=== PATIENT | male | born 1930 | race Caucasian/White ===

== ENCOUNTER → 2016-08-12 | Outpatient (CLI) | payer OTHER ==
[~2016-08-12] MED LIST: AMLO-114 PO; ASPI325T39 PO; ATOR10TA82 PO; B-COCAP2 PO; CHOL100010 PO; GABA1CAP5 PO; LISI-725 PO; MULT-190 PO; NITR-5 PO; OXYC-57 PO; VITATAB19 PO
--- NOTE | 2016-08-12 12:18 | DIAGNOSTIC IMAGING REPORT ---
ULTRASOUND ART DOP LOWER EXT BILAT CLINICAL HISTORY: RIGHT FOOT pain COMPARISON STUDY: 05/11/2012 FINDINGS: Real-time as well as Doppler evaluation of the arterial structures of the lower legs was performed. Waveforms are triphasic throughout. Velocity characteristics are unremarkable. Similar study is compared to the prior study. Biphasic phasic waveforms are noted throughout both legs primarily. Velocity characteristics are considered unremarkable. There continues be a suggestion of some dampening of the waveforms of the 3 runoff vessels of the lower leg. Calcified plaque formation is noted bilaterally limiting evaluation in part. Monophasic waveforms are noted involving the runoff vessels of the left lower leg with dampened waveforms again noted. The following blood pressure indices were obtained. On the right, posterior tibial is 0.97 and dorsalis pedis is 0.96. On the left, posterior tibial is 0.67 and dorsalis pedis is 0.88. IMPRESSION: Somewhat limited study due to presence of calcified plaque. 2. Diminished and are dampened 3 vessel runoff vascular flow to the lower legs bilaterally. 3. 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 4. No major change compared to the prior study. Electronically signed by: Michele Jeffries M.D. 08/12/2016 12:17 PM Dictated Date/Time: 08/12/2016 12:14 PM
== END | disposition home or self-care (01) ==
LOC: C.ULTR 10:28
PROVIDERS: ATTEND Podiatrist
DX: M79.671 Pain in right foot (principal); L89.891 Pressure ulcer of other site, stage 1; G60.8 Other hereditary and idiopathic neuropathies

== ENCOUNTER 2020-07-28 10:01 | Inpatient (IN) ==
--- NOTE | 2020-07-28 10:07 | Emergency Department Note ---
Impression & Plan Acute hypoxemic respiratory failure, Pneumonia, SHARRI (acute kidney injury), Dehydration, COVID-19 ED Provider Note NAME: SARAY FOWLER AGE: 89 SEX: M : 1930 ARRIVES VIA: Ambulance INFORMANT: Patient, ED PROVIDER(S): Sheng Hernandez MD Chief Complaint: Shortness of breath HPI: Patient does present with concern for shortness of breath patient is unsure as to how long he has had the symptoms but has had a dry nonproductive cough. The patient is vaccinated for Covid. Patient denies any recent travel or sick contacts. The patient does live with his sister. Patient states that he has had worsening shortness of breath with activity. Unsure as to whether not he has had worsening lower extremity swelling. EMS reported the patient was satting in the high 70s was given a breathing treatment. The patient does not wear at home oxygen. The patient does have a remote history of smoking several times but no chronic smoking use and none recent. Patient denies any fevers or chills chest pains or nausea or vomiting. Patient states he is compliant with his medications and did take his morning meds. ROS: See HPI for pertinent positives and negatives. A total of 10 systems were reviewed and otherwise negative. Past medical history: See below Surgical history: See below Social history: See below Physical Exam: GENERAL: Mildly ill in appearance, nasal cannula in place, wearing a mask EYE EXAM: Normal conjunctiva. PERRL, no anisocoria and EOM's grossly intact w/o pain. NECK: Supple, no nuchal rigidity, no adenopathy, non-tender. No signs of meningismus. LUNGS: Crackles throughout. HEART: NSR, no MRG. ABDOMEN: Abdomen soft, non-tender, normo-active bowel sounds, no masses, no rebound or guarding. BACK: No CVA TTP. SKIN: No rashes and no bruising. UPPER EXTREMITIES: Upper extremities are grossly normal. LOWER EXTREMITIES: Grossly normal, no edema. Missing left first toe. Well-h ealed. NEURO EXAM: A&O x3, cranial nerves II-XII grossly intact, normal speech, moves all 4 extremities on command w/o issue. Differential diagnoses: Reactive airway disease, pneumonia, pneumothorax, COPD, CHF, infections, cardiac ischemia, pulmonary embolism, musculoskeletal, gastrointestinal, as well as other pathologies. Course: Patient was seen and evaluated the bedside. Full history physical exam was performed. EKG: Indication: Shortness of breath Sinus with PVCs, rate of 81, wide QRS, right bundle branch block pattern. The patient's right bundle is new from comparison EKG completed February 06, 2018. Imaging Studies: See below Cardiac monitoring: An order was placed for continuous cardiac monitoring. The monitor shows a rate of 81 with sinus rhythm. MDM: Patient was seen due to concern for shortness of breath. Blood work was obtained along with an EKG troponin chest x-ray BNP VBG and lactate. Covid also obtained. Patient does not appear to be volume overloaded but does have crackles throughout. VBG unremarkable with white count of 12 H&H is unremarkable. The patient did have a lactate of 3.8 and had endorsed some diarrheal type symptoms the patient was ordered IV fluids especially light of the patient's elevated BUN to creatinine ratio and a change of his creatinine from 1.3-1.9. Covid and flu still pending. Chest x-ray with viral type pneumonia. I did speak with alcohol hospitalist Halle Mann PA-C and the patient was admitted to Dr. Church. I also discussed that the patient does have a new right bundle branch block from several years ago but the patient is not tachypneic nor tachycardic. Patient does not take anything for rate control and I believe an infectious process to be unlikely. No obvious lower extremity swelling. Antibiotics/dexamethasone deferred until Covid results obtained. Covid positive. Dexamethasone ordered. Critical Care: I have personally spent 57 minutes of critical care time in direct management of this patient. This includes bedside care, interpretation of diagnostic studies, and testing, discussion with consultants, patient, and family members, and other require inpatient management activities. This 57 minutes is in excess of all separately billable procedures. Past Med/Surg History Medical History (Updated 07/28/20 @ 13:14 by Sheng Hernandez MD) Heart disease HTN (hypertension) Kidney disease Peripheral neuropathy PVD (peripheral vascular disease) Surgical History Hx of transurethral resection of prostate Family History Other Heart disease Social History Smoking Status: Never smoker Second Hand Exposure: No; Hx Alcohol Use: No Hx Substance Use: No Preferred Language: Indonesian Communication Ability: Effective Visual Impairment: No Limitations Digital Computer Systems Analyst Required: No Beliefs That Will Affect Care: None Current Living Situation: Family Current Living Situation Comment: lives with sister Feels Safe at Home: Yes Assistive Devices: Special Shoe Allergies Allergies Allergy/AdvReac Type Severity Reaction Status Date / Time pollen extracts Allergy Intermediate "HAYFEVER" Verified 07/28/20 10:53 No Known Drug Allergies Allergy Unknown NKDA Verified 07/28/20 10:53 Home Meds Home Medications Medication Instructions Recorded Confirmed amlodipine 10 mg PO QAM 02/06/18 07/28/20 aspirin 325 mg PO QAM 02/06/18 07/28/20 atorvastatin 10 mg PO QDL 02/06/18 07/28/20 cholecalciferol (vitamin D3) 1,000 unit PO QAM 02/06/18 07/28/20 [Vitamin D3] lisinopril 15 mg PO QAM 02/06/18 07/28/20 vitamin B complex 1 tab PO QDL 02/06/18 07/28/20 finasteride 5 mg PO QAM 07/28/20 07/28/20 vit C,N-Qr-mnqwc-lutein-zeaxan 1 tab PO BID 07/28/20 07/28/20 [PreserVision AREDS-2] Previous Rx's Medication Instructions Recorded clopidogrel 75 mg PO QAM #30 tab 02/12/18 Results & Data (ED) Vital Signs Vital Signs - 24 hr 07/28/20 10:13 07/28/20 10:15 07/28/20 10:31 Temperature 37 C Temperature Source Oral Pulse Rate 83 86 Pulse Rate from SpO2 Sensor 67 Pulse Rhythm Regular Pulse Strength Normal Respiratory Rate 22 23 Respiratory Effort / Characteristics Short of Breath Respiratory Pattern Regular Blood Pressure 160/66 H 130/57 L Blood Pressure Mean 97 81 Pulse Oximetry 88 L 92 94 Oxygen Delivery Method Room Air Nasal Cannula Nasal Cannula Nasal Cannula Oxygen Flow Rate 4 4 4 Sepsis Recent Fever Within 48 Hours No Sepsis New/Unexplained Change in Mental Status No Sepsis Action Taken by Nursing No Action Required Oxygen Flow Rate - Titration 4 Pulse Oximetry Post Tiitration 98 07/28/20 11:00 07/28/20 11:15 07/28/20 11:30 Temperature Temperature Source Pulse Rate 76 78 Pulse Rate from SpO2 Sensor 70 63 Pulse Rhythm Pulse Strength Respiratory Rate 22 24 Respiratory Effort / Characteristics Non-Labored Spontaneous Non-Labored Spontaneous Respiratory Pattern Blood Pressure 142/59 H Blood Pressure Mean 86 Pulse Oximetry 94 95 Oxygen Delivery Method Nasal Cannula Nasal Cannula Nasal Cannula Oxygen Flow Rate 4 4 4 Sepsis Recent Fever Within 48 Hours Sepsis New/Unexplained Change in Mental Status Sepsis Action Taken by Nursing Oxygen Flow Rate - Titration Pulse Oximetry Post Tiitration 07/28/20 12:00 07/28/20 12:01 07/28/20 12:30 Temperature Temperature Source Pulse Rate 77 74 Pulse Rate from SpO2 Sensor 70 71 Pulse Rhythm Pulse Strength Respiratory Rate 25 H 21 Respiratory Effort / Characteristics Non-Labored Spontaneous Respiratory Pattern Blood Pressure 122/51 L 133/67 Blood Pressure Mean 74 89 Pulse Oximetry 93 94 Oxygen Delivery Method Nasal Cannula Nasal Cannula Nasal Cannula Oxygen Flow Rate 4 4 4 Sepsis Recent Fever Within 48 Hours Sepsis New/Unexplained Change in Mental Status Sepsis Action Taken by Nursing Oxygen Flow Rate - Titration Pulse Oximetry Post Tiitration Home Medications Current Medication List: was personally reviewed by me Laboratory Data Attestation: I reviewed the patient's lab results. Result diagrams: 07/28/20 10:15 07/28/20 10:15 Lab Results 07/28/20 07/28/20 07/28/20 Range/Units 10:15 10:15 10:15 WBC 12.10 H (4.8-10.8) K/uL RBC 4.93 (4.7-6.1) M/uL Hgb 15.3 (14.0-18.0) g/dL Hct 42.1 (42-52) % MCV 85.4 (80-100) fL MCH 31.0 (25-34) pg MCHC 36.3 H (32-36) g/dL RDW Std Deviation 40.3 (36.4-46.3) fL RDW Coeff of Khang 12.8 (11.5-14.5) % Plt Count 115 L (130-400) K/uL MPV 12.6 H (7.4-10.4) fL Immature Gran % (Auto) 0.2 % Neut % (Auto) 81.9 % Lymph % (Auto) 10.7 % [place] % (Auto) 6.4 % Eos % (Auto) 0.7 % Baso % (Auto) 0.1 % Neut # (Auto) 9.92 H (1.4-6.5) K/uL Lymph # (Auto) 1.29 (1.2-3.4) K/uL [place] # (Auto) 0.78 H (0.11-0.59) K/uL Eos # (Auto) 0.08 (0-0.5) K/uL Baso # (Auto) 0.01 (0-0.2) K/uL Immature Gran # (Auto) 0.02 (0.00-0.02) K/uL Platelet Estimate Decreased L (Normal) PT 10.1 (9.0-12.0) Seconds INR 1.0 (0.9-1.1) APTT 27.6 (21.0-31.0) Seconds PTT Ratio 1.0 VBG pH (7.36-7.41) VBG pCO2 (38-50) mmHg VBG pO2 mmHg VBG HCO3 mmol/L VBG O2 Saturation % VBG Base Excess mEq/L Barometric Pressure mm/Hg Sodium 142 (136-145) mmol/L Potassium 3.6 (3.5-5.1) mmol/L Chloride 109 H (98-107) mmol/L Carbon Dioxide 22 (21-32) mmol/L Anion Gap 11.0 (3-11) BUN 46 H (7-18) mg/dl Creatinine 1.98 H (0.6-1.4) mg/dl Est Cr Clr Drug Dosing 25.5 ml/min Est GFR ( Amer) 34.0 Est GFR (Non-Af Amer) 29.3 BUN/Creatinine Ratio 23.3 H (10-20) Glucose 122 H (70-99) mg/dl Lactate (0.4-2.0) mmol/L Calcium 9.0 (8.5-10.1) mg/dl Magnesium 2.8 H (1.8-2.4) mg/dl Total Bilirubin 1.0 (0.2-1) mg/dl AST 39 H (15-37) U/L ALT 31 (12-78) U/L Alkaline Phosphatase 73 (45-117) U/L Troponin I 0.024 (0-0.045) ng/ml NT-Pro-B Natriuret Pep 379 (0-1800) pg/ml Total Protein 8.5 H (6.4-8.2) gm/dl Albumin 3.3 L (3.4-5.0) gm/dl Globulin 5.2 H (2.5-4.0) gm/dl Albumin/Globulin Ratio 0.6 L (0.9-2) Procalcitonin (0-0.5) ng/ml COVID-19 Eval Order SARS-CoV-2 (PCR) (Negative) Influenza Type A (PCR) (Neg) Influenza Type B (PCR) (Neg) RSV (RT-PCR) (Neg) 07/28/20 07/28/20 07/28/20 Range/Units 10:15 10:15 10:24 WBC (4.8-10.8) K/uL RBC (4.7-6.1) M/uL Hgb (14.0-18.0) g/dL Hct (42-52) % MCV (80-100) fL MCH (25-34) pg MCHC (32-36) g/dL RDW Std Deviation (36.4-46.3) fL RDW Coeff of Khang (11.5-14.5) % Plt Count (130-400) K/uL MPV (7.4-10.4) fL Immature Gran % (Auto) % Neut % (Auto) % Lymph % (Auto) % [place] % (Auto) % Eos % (Auto) % Baso % (Auto) % Neut # (Auto) (1.4-6.5) K/uL Lymph # (Auto) (1.2-3.4) K/uL [place] # (Auto) (0.11-0.59) K/uL Eos # (Auto) (0-0.5) K/uL Baso # (Auto) (0-0.2) K/uL Immature Gran # (Auto) (0.00-0.02) K/uL Platelet Estimate (Normal) PT (9.0-12.0) Seconds INR (0.9-1.1) APTT (21.0-31.0) Seconds PTT Ratio VBG pH (7.36-7.41) VBG pCO2 (38-50) mmHg VBG pO2 mmHg VBG HCO3 mmol/L VBG O2 Saturation % VBG Base Excess mEq/L Barometric Pressure mm/Hg Sodium (136-145) mmol/L Potassium (3.5-5.1) mmol/L Chloride (98-107) mmol/L Carbon Dioxide (21-32) mmol/L Anion Gap (3-11) BUN (7-18) mg/dl Creatinine (0.6-1.4) mg/dl Est Cr Clr Drug Dosing ml/min Est GFR ( Amer) Est GFR (Non-Af Amer) BUN/Creatinine Ratio (10-20) Glucose (70-99) mg/dl Lactate 3.8 H* (0.4-2.0) mmol/L Calcium (8.5-10.1) mg/dl Magnesium (1.8-2.4) mg/dl Total Bilirubin (0.2-1) mg/dl AST (15-37) U/L ALT (12-78) U/L Alkaline Phosphatase (45-117) U/L Troponin I (0-0.045) ng/ml NT-Pro-B Natriuret Pep (0-1800) pg/ml Total Protein (6.4-8.2) gm/dl Albumin (3.4-5.0) gm/dl Globulin (2.5-4.0) gm/dl Albumin/Globulin Ratio (0.9-2) Procalcitonin 0.28 (0-0.5) ng/ml COVID-19 Eval Order CovFluRsv at [facility] SARS-CoV-2 (PCR) (Negative) Influenza Type A (PCR) (Neg) Influenza Type B (PCR) (Neg) RSV (RT-PCR) (Neg) 07/28/20 07/28/20 Range/Units 10:24 11:02 WBC (4.8-10.8) K/uL RBC (4.7-6.1) M/uL Hgb (14.0-18.0) g/dL Hct (42-52) % MCV (80-100) fL MCH (25-34) pg MCHC (32-36) g/dL RDW Std Deviation (36.4-46.3) fL RDW Coeff of Khang (11.5-14.5) % Plt Count (130-400) K/uL MPV (7.4-10.4) fL Immature Gran % (Auto) % Neut % (Auto) % Lymph % (Auto) % [place] % (Auto) % Eos % (Auto) % Baso % (Auto) % Neut # (Auto) (1.4-6.5) K/uL Lymph # (Auto) (1.2-3.4) K/uL [place] # (Auto) (0.11-0.59) K/uL Eos # (Auto) (0-0.5) K/uL Baso # (Auto) (0-0.2) K/uL Immature Gran # (Auto) (0.00-0.02) K/uL Platelet Estimate (Normal) PT (9.0-12.0) Seconds INR (0.9-1.1) APTT (21.0-31.0) Seconds PTT Ratio VBG pH 7.38 (7.36-7.41) VBG pCO2 37 L (38-50) mmHg VBG pO2 20 mmHg VBG HCO3 21 mmol/L VBG O2 Saturation < 60.0 % VBG Base Excess -3.4 mEq/L Barometric Pressure 725.7 mm/Hg Sodium (136-145) mmol/L Potassium (3.5-5.1) mmol/L Chloride (98-107) mmol/L Carbon Dioxide (21-32) mmol/L Anion Gap (3-11) BUN (7-18) mg/dl Creatinine (0.6-1.4) mg/dl Est Cr Clr Drug Dosing ml/min Est GFR ( Amer) Est GFR (Non-Af Amer) BUN/Creatinine Ratio (10-20) Glucose (70-99) mg/dl Lactate (0.4-2.0) mmol/L Calcium (8.5-10.1) mg/dl Magnesium (1.8-2.4) mg/dl Total Bilirubin (0.2-1) mg/dl AST (15-37) U/L ALT (12-78) U/L Alkaline Phosphatase (45-117) U/L Troponin I (0-0.045) ng/ml NT-Pro-B Natriuret Pep (0-1800) pg/ml Total Protein (6.4-8.2) gm/dl Albumin (3.4-5.0) gm/dl Globulin (2.5-4.0) gm/dl Albumin/Globulin Ratio (0.9-2) Procalcitonin (0-0.5) ng/ml COVID-19 Eval Order SARS-CoV-2 (PCR) POSITIVE A* (Negative) Influenza Type A (PCR) Negative (Neg) Influenza Type B (PCR) Negative (Neg) RSV (RT-PCR) Negative (Neg) Administered Medications Ceftriaxone Sodium 1,000 mg/ (Dextrose) 50 mls @ 100 mls/hr IV Q24H [facility]; Protocol Stop: 08/04/20 12:29 Last Admin: 07/28/20 12:37 Dose: Not Given Documented by: [id number] Discontinued Medications Ceftriaxone Sodium (Ceftriaxone Sodium 350 Mg/Ml Im) Confirm Administered Dose 350.171078 mg IM .STK-MED ONE Stop: 07/28/20 12:35 Last Admin: 07/28/20 12:37 Dose: Not Given Documented by: [id number] Ceftriaxone Sodium (Ceftriaxone Sodium 1000mg/50ml D5w) Confirm Administered Dose 1,000 mg IV .STK-MED ONE Stop: 07/28/20 12:36 Last Admin: 07/28/20 12:36 Dose: 1,000 mg Documented by: [id number] Dexamethasone Sodium Phosphate (DexamethasonePf 10 Mg/Ml Vial) 6 mg IV NOW ONE Stop: 07/28/20 12:02 Last Admin: 07/28/20 12:22 Dose: 6 mg Documented by: [id number] Sodium Chloride (Nss 1000ml) 1,000 mls @ 999 mls/hr IV .Q1H1M ONE Stop: 07/28/20 12:02 Last Admin: 07/28/20 11:19 Dose: 999 mls/hr Documented by: [id number] Imaging Data Radiologist's Impression: Chest X-Ray 07/28/20 10:15 XR chest 1V portable HISTORY: Cough. SEPSIS COMPARISON: Chest 02/06/2018. FINDINGS: There appear to be faint hazy densities within the periphery of the right mid to lower lung zone and left lung base. Findings favor a multifocal viral pneumonia. No pneumothorax. No pleural effusions. The heart is normal in size. IMPRESSION: Faint hazy densities within the lungs, right greater than left. This favors a mild viral pneumonia. ACT 112: Negative or not required by law. Electronically signed by: Dominic Norton M.D. 07/28/2020 10:42 AM Discharge Plan Visit Data Chief Complaint: Shortness of Breath/Dyspnea ED Provider: Sheng Hernandez Discharge Problem: Acute hypoxemic respiratory failure, Pneumonia, SHARRI (acute kidney injury), Dehydration, COVID-19 Forms Stand Alone Forms: [facility] Prescriptions Prescriptions: No Action atorvastatin 10 mg Tablet 10 mg PO QDL RF: 0 aspirin 325 mg Tablet 325 mg PO QAM RF: 0 amlodipine 10 mg tablet 10 mg PO QAM RF: 0 lisinopril 10 mg Tablet 15 mg PO QAM RF: 0 vitamin B complex Tablet 1 tab PO QDL RF: 0 cholecalciferol (vitamin D3) [Vitamin D3] 1,000 unit Tablet 1,000 unit PO QAM RF: 0 clopidogrel 75 mg Tablet 75 mg PO QAM Qty: 30 RF: 5 finasteride 5 mg tablet 5 mg PO QAM RF: 0 PreserVision AREDS-2 250-90-40-1 mg Capsule 1 tab PO BID RF: 0 Discharge Problem: Pneumonia Qualifiers: Pneumonia type: due to unspecified organism Laterality: unspecified laterality Lung location: unspecified part of lung Qualified Code(s): J18.9 - Pneumonia, unspecified organism
--- NOTE | 2020-07-28 10:44 | XRay Report ---
XR chest 1V portable HISTORY: Cough. SEPSIS COMPARISON: Chest 02/06/2018. FINDINGS: There appear to be faint hazy densities within the periphery of the right mid to lower lung zone and left lung base. Findings favor a multifocal viral pneumonia. No pneumothorax. No pleural ef fusions. The heart is normal in size. IMPRESSION: Faint hazy densities within the lungs, right greater than left. This favors a mild viral pneumonia. ACT 112: Negative or not required by law. Electronically signed by: Dominic Norton M.D. 07/28/2020 10:42 AM
[2020-07-28 10:47] LABS: Partial Thromboplastin Time 27.6 Seconds (21.0-31.0); Prothrombin Time 10.1 Seconds (9.0-12.0)
[2020-07-28 10:51] LABS: Basophils # (auto) 0.01 K/uL (0-0.2); Basophils % (auto) 0.1 %; Eosinophils # (auto) 0.08 K/uL (0-0.5); Eosinophils % (auto) 0.7 %; Hematocrit (blood only) 42.1 % (42-52); Hemoglobin 15.3 g/dL (14.0-18.0); Immature Granulocytes # (auto) 0.02 K/uL (0.00-0.02); Immature Granulocytes % (auto) 0.2 %; Lymphocytes # (auto) 1.29 K/uL (1.2-3.4); Lymphocytes % (auto) 10.7 %; Mean Corpuscular Hgb Conc 36.3 g/dL (32-36); Mean Corpuscular Volume 85.4 fL (80-100); Mean Platelet Volume 12.6 fL (7.4-10.4); Monocytes # (auto) 0.78 K/uL (0.11-0.59); Monocytes % (auto) 6.4 %; Neutrophils # (auto) 9.92 K/uL (1.4-6.5); Neutrophils % (auto) 81.9 %; Platelet Count 115 K/uL (130-400); Platelet Estimate Decreased (Normal); RDW Coefficient of Variation 12.8 % (11.5-14.5); RDW Standard Deviation 40.3 fL (36.4-46.3); Red Blood Count 4.93 M/uL (4.7-6.1)
[2020-07-28 10:57] LABS: Albumin Level 3.3 gm/dl (3.4-5.0); BUN Creatinine Ratio 23.3 (10-20); Creatinine Clr Calc Pharmacy 25.5 ml/min; Est GFR (Non-African American) 29.3; Magnesium 2.8 mg/dl (1.8-2.4); Potassium 3.6 mmol/L (3.5-5.1)
[2020-07-28] MEDS ORDERED: SODIUM CHLORIDE 0.9% 1000ML 1,000 ML IV ONE (11:02)
[2020-07-28 11:03] LABS: Albumin Globulin Ratio 0.6 (0.9-2); Globulin 5.2 gm/dl (2.5-4.0); Total Protein 8.5 gm/dl (6.4-8.2); Troponin I 0.024 ng/ml (0-0.045)
[2020-07-28 11:16] LABS: Base Excess VBG -3.4 mEq/L; HCO3 VBG 21 mmol/L; Oxygen Saturation VBG < 60.0 %; PCO2 VBG 37 mmHg (38-50); PO2 VBG 20 mmHg; pH VBG 7.38 (7.36-7.41)
[2020-07-28 11:23] LABS: Influenza A virus by PCR Negative (Neg); Influenza B virus by PCR Negative (Neg); RSV by PCR Negative (Neg)
--- NOTE | 2020-07-28 11:55 | History & Physical Report ---
Date of Service July 28, 2020 Assessment & Plan (1) Acute hypoxemic respiratory failure: (2) COVID-19: (3) Pneumonia: (4) Lactic acidosis: (5) Acute kidney injury superimposed on chronic kidney disease: (6) PAD (peripheral artery disease): (7) HTN (hypertension), benign: (8) BPH (benign prostatic hyperplasia): (9) Hyperlipidemia: This is an 89-year-old male with PMH of PAD, HTN, HLD, CKD III and other medical problems listed below who presents with worsening cough and shortness of breath over the past week was found to have acute hypoxic respiratory failure and Covid pneumonia. Acute hypoxic respiratory failure Covid pneumonia Initially hypoxic at 88% on RA. Now saturating 94% on 4 L nasal cannula Mild leukocytosis of 12.10. Lactic acid elevated at 3.8 - repeat wnl at 2. Procalcitonin within normal limits at 0.28 Positive covid-19 test in ED Chest x-ray with faint hazy densities right greater than left favoring viral pneumonia Started on IV dexamethasone 6 mg daily Endorsing symptoms for >1 week, also with SHARRI on CKD so not a good candidate for remdesivir Covid precautions Albuterol inhaler Proning as needed Possible sepsis 2/2 pneumonia Mild leukocytosis and lactic acid elevation likely reactive in setting of viral Covid pneumonia - lactic acid normalized, procal wnl However, possible patient with superimposed bacterial pneumonia Started empiric Rocephin and doxycycline Follow blood cultures Acute kidney injury superimposed on chronic kidney disease Creatinine elevated at 1.98 (baseline cr~ 1.4) In setting of Covid pneumonia, poor p.o. intake Gentle IV fluids, avoid nephrotoxic agents when able PAD History of vascular intervention of right lower extremity in the past Continue aspirin, Plavix, atorvastatin HTN Continue amlodipine, lisinopril BPH Continue finasteride HLD Continue statin DVT Ppx: Unfractionated heparin Q8H as recommended VTE ppx for covid + patients with Cr cl < 30 Code status: FULL per discussion with patient PCP: Rajwinder Dispo: Admitted to PCU Patient seen in collaboration with Dr. Church. Please see addendum. History of Present Illness Chief Complaint: Shortness of breath, cough Primary Care Provider: Sam Purdy DO This is an 89-year-old male with PMH of PAD, HTN, HLD, CKD III and other medical problems listed below who presents with worsening cough and shortness of breath over the past week. Patient endorses cough over the past month and a half that significantly worsened a week ago at time of receiving second mood and a Covid vaccine. Has felt more exhausted since then and also now dyspneic on exertion. States that this symptom was there prior to last week but is gotten significantly worse. Does not require oxygen at baseline but is found to be hypoxic at 88% on room air upon arrival. Now saturating 94% on 4 L. Denies any history of asthma or COPD. No fever or chills. Has had diarrhea for the past 2 months. Denies any headache, lightheadedness, chest pain, nausea, vomiting or dysuria. In ED, patient afebrile. Saturating 94% on 4 L nasal cannula. Mild leukocytosis of 12.10. Lactic acid elevated at 3.8. Procalcitonin within normal limits at 0.28. Found to be Covid positive. Chest x-ray with faint hazy densities right greater than left favoring viral pneumonia. Allergies Allergy/AdvReac Type Severity Reaction Status Date / Time pollen extracts Allergy Intermediate "HAYFEVER" Verified 07/28/20 10:53 No Known Drug Allergies Allergy Unknown NKDA Verified 07/28/20 10:53 Home Medications Medication Instructions Recorded Confirmed Type amlodipine 10 mg PO QAM 02/06/18 07/28/20 History aspirin 325 mg PO QAM 02/06/18 07/28/20 History atorvastatin 10 mg PO QDL 02/06/18 07/28/20 History cholecalciferol (vitamin D3) 1,000 unit PO QAM 02/06/18 07/28/20 History [Vitamin D3] lisinopril 15 mg PO QAM 02/06/18 07/28/20 History vitamin B complex 1 tab PO QDL 02/06/18 07/28/20 History clopidogrel 75 mg PO QAM #30 tab 02/12/18 07/28/20 Rx finasteride 5 mg PO QAM 07/28/20 07/28/20 History vit C,M-Iz-bfjub-lutein-zeaxan 1 tab PO BID 07/28/20 07/28/20 History [PreserVision AREDS-2] Past Med/Surg History Medical History (Updated 04/16/21 @ 13:21 by Halle Mann PA-C) Heart disease HTN (hypertension) Kidney disease Peripheral neuropathy PVD (peripheral vascular disease) Surgical History Hx of transurethral resection of prostate Family History Other Heart disease Social History Smoking Status: Unknown if ever smoked Second Hand Exposure: No; Hx Alcohol Use: No Hx Substance Use: No Preferred Language: Nepali Communication Ability: Effective Visual Impairment: No Limitations Customer Care Associate Required: No Beliefs That Will Affect Care: None Current Living Situation: Family Current Living Situation Comment: lives with sister Other Information That Helps Us Care for You: No Feels Safe at Home: Yes Safety Concerns: Feels Safe At This Time Assistive Devices: Walker Review of Systems Review of Systems: At least ten systems reviewed and negative except as noted in the HPI. Physical Exam Physical Exam: Please refer to Dr. Church's addendum for full physical exam details. Results & Data Results & Data ([facility]) Vital Signs (Past 12 Hours) Vital Signs Temp Pulse Resp BP Pulse Ox 07/28/20 11:30 78 24 142/59 H 95 07/28/20 11:00 76 22 94 07/28/20 10:31 86 23 130/57 L 94 07/28/20 10:15 92 07/28/20 10:13 37 C 83 22 160/66 H 88 L Laboratory Results Short CBC 07/28/20 07/28/20 Range/Units 10:15 10:15 WBC 12.10 H (4.8-10.8) K/uL Hgb 15.3 (14.0-18.0) g/dL Hct 42.1 (42-52) % Plt Count 115 L (130-400) K/uL Lactate 3.8 H* (0.4-2.0) mmol/L BMP 07/28/20 10:15 Sodium 142 Potassium 3.6 Chloride 109 H Carbon Dioxide 22 BUN 46 H Creatinine 1.98 H Glucose 122 H Calcium 9.0 Cardiac Enzymes 07/28/20 Range/Units 10:15 Troponin I 0.024 (0-0.045) ng/ml Liver Function 07/28/20 Range/Units 10:15 Total Bilirubin 1.0 (0.2-1) mg/dl AST 39 H (15-37) U/L ALT 31 (12-78) U/L Alkaline Phosphatase 73 (45-117) U/L Albumin 3.3 L (3.4-5.0) gm/dl Diagnostic Findings CXR: IMPRESSION: Faint hazy densities within the lungs, right greater than left. This favors a mild viral pneumonia. Supervising Physician Co-Signing Physician Notes Patient seen and examined by me, care coordinated with Halle Mann PA-C, please refer to her note above for further detail. Pt is an 89 y/o male with PMH of PAD, HTN, HLD, CKD III and other medical problems who presents with worsening cough and shortness of breath over the past week. Cough worsening over the past month and a half. +Dyspnea on exertion. Does not require oxygen at baseline but is found to be hypoxic at 88% on room air upon arrival to ED. In ED saturating 94% on 4 L. + diarrhea for the past 2 months. Found to be Covid positive. Mild leukocytosis of 12.10. Lactic acid elevated at 3.8. Procalcitonin within normal limits at 0.28. Chest x-ray with faint hazy densities right greater than left favoring viral pneumonia. Patient is currently sitting up in bed, in no acute distress, however with frequent coughing, especially when talking. He is otherwise speaking in full sentences. He is alert and oriented answering questions appropriately. Nasal cannula applied. Heart sounds seem regular. No wheezing noted, mild diffuse rhonchi. Abdomen soft, nontender, nondistended. There is no lower extremity edema. Moves all extremities spontaneously and without difficulty. Skin is warm and dry. As above, started treatment for COVID-19, patient will be on isolation. Continue to closely monitor his respiratory status. Lenard Church MD (1) Hyperlipidemia Hyperlipidemia type: other hyperlipidemia Qualified Code(s): E78.49 - Other hyperlipidemia; E78.4 - Other hyperlipidemia (2) Pneumonia Laterality: unspecified laterality Lung location: unspecified part of lung Pneumonia type: due to unspecified organism Qualified Code(s): J18.9 - Pneumonia, unspecified organism
[2020-07-28 11:56] LABS: SARS CoV2 RNA(COVID-19) InHosp POSITIVE (Negative)
[2020-07-28] MEDS ORDERED: dexAMETHasone**PF** 10 MG/ML VIAL IV ONE (12:01)
[2020-07-28] MEDS ORDERED: cefTRIAXone SODIUM 350 MG/ML IM IM ONE (12:34)
[2020-07-28] MEDS ORDERED: cefTRIAXone SODIUM 1000MG/50ML D5W IV ONE (12:35)
[2020-07-28] MEDS: cefTRIAXone SODIUM 1,000 MG in DEXTROSE 5% 50 ML IV SCH (12:37)
[2020-07-28] MEDS: DOXYCYCLINE HYCLATE 100 MG in DEXTROSE 5% 100 ML IV SCH (13:20)
[2020-07-28] MEDS ORDERED: POLYETHYLENE (MIRALAX) 17 GM PACK PO PRN (16:21)
[2020-07-28] MEDS ORDERED: ONDANSETRON INJ 2 MG/ML 2 ML VIAL IV PRN (16:21)
[2020-07-28] MEDS ORDERED: ACETAMINOPHEN 325 MG TAB PO PRN (16:21)
[2020-07-28] MEDS: BENZONATATE 100 MG CAPSULE PO SCH ×2 (16:39→21:19)
[2020-07-28] MEDS: HEPARIN SOD 5,000 UNIT/0.5 ML VIAL SQ SCH ×2 (17:45→21:20)
[2020-07-29] MEDS ORDERED: CALCIUM CARBONATE 500 MG CHEWABLE TAB PO PRN (01:09)
[2020-07-29] MEDS: DOXYCYCLINE HYCLATE 100 MG in DEXTROSE 5% 100 ML IV SCH ×2 (01:28→13:53)
[2020-07-29] MEDS: HEPARIN SOD 5,000 UNIT/0.5 ML VIAL SQ SCH ×3 (05:25→21:03)
--- NOTE | 2020-07-29 06:22 | Electrocardiogram Report ---
Test Reason : Blood Pressure : / mmHG Vent. Rate : 081 BPM Atrial Rate : 081 BPM P-R Int : 154 ms QRS Dur : 128 ms QT Int : 390 ms P-R-T Axes : 069 088 041 degrees QTc Int : 453 ms Sinus rhythm with frequent Premature ventricular complexes Premature atrial complexes Right bundle branch block Abnormal ECG When compared with ECG of 06-FEB-2018 12:26, Premature ventricular complexes are now Present Right bundle branch block is now Present Premature atrial complexes are now Present Confirmed by Chas Garcia ([id number]) on 07/29/2020 6:21:56 AM Referred By: Confirmed By:Chas Garcia
[2020-07-29] MEDS: dexAMETHasone 6 MG in SYRINGE 0 ML IV SCH (07:41)
[2020-07-29] MEDS: BENZONATATE 100 MG CAPSULE PO SCH ×3 (07:42→21:03)
--- NOTE | 2020-07-29 07:43 | Hospitalist Progress Note ---
Date of Service July 29, 2020 Assessment & Plan (1) Acute hypoxemic respiratory failure: (2) COVID-19: (3) Pneumonia: (4) Lactic acidosis: (5) Acute kidney injury superimposed on chronic kidney disease: (6) PAD (peripheral artery disease): (7) HTN (hypertension), benign: (8) BPH (benign prostatic hyperplasia): (9) Hyperlipidemia: This is an 89-year-old male with PMH of PAD, HTN, HLD, CKD III and other medical problems listed below who presents with worsening cough and shortness of breath over the past week was found to have acute hypoxic respiratory failure and Covid pneumonia. Acute hypoxic respiratory failure Covid pneumonia Initially hypoxic at 88% on RA. Now saturating 94% on 4 L nasal cannula Mild leukocytosis of 12.10. Lactic acid elevated at 3.8 - repeat wnl at 2. Procalcitonin within normal limits at 0.28 Positive covid-19 test in ED Chest x-ray with faint hazy densities right greater than left favoring viral pneumonia Started on IV dexamethasone 6 mg daily Endorsing symptoms for >1 week, also with SHARRI on CKD so not a good candidate for remdesivir Covid precautions Albuterol inhaler Proning as needed 07/29 Patient was sitting in the chair, today, although 80s% saturations when speaking. However when pulse ox changed to forehead, saturations improved into the 90s. Patient has history of PAD therefore readings may have been incorrect previously. Discussed in detail with nursing staff to make sure we have correct readings. Possible sepsis 2/2 pneumonia Mild leukocytosis and lactic acid elevation likely reactive in setting of viral Covid pneumonia - lactic acid normalized, procal wnl However, possible patient with superimposed bacterial pneumonia Started empiric Rocephin and doxycycline Follow blood cultures Acute kidney injury superimposed on chronic kidney disease Creatinine elevated at 1.98 (baseline cr~ 1.4) In setting of Covid pneumonia, poor p.o. intake Gentle IV fluids, avoid nephrotoxic agents when able Creatinine now improved to 1.4, back to baseline PAD History of vascular intervention of right lower extremity in the past Continue aspirin, Plavix, atorvastatin HTN Continue amlodipine, lisinopril BPH Continue finasteride HLD Continue statin DVT Ppx: Unfractionated heparin Q8H as recommended VTE ppx for covid + patients with Cr cl < 30 Code status: FULL per discussion with patient PCP: Dr. Purdy Dispo: Admitted to PCU Admission and Anticipated Discharge Date Admission Date: July 28, 2020 Subjective Patient seen in follow-up of respiratory failure with hypoxia, due to COVID-19 pneumonia Currently he is in a chair, in no acute distress, coughing frequently, speaking in full sentences Pulse ox on his finger, however shows saturations in 80s despite being on 4 L of supplemental O2. Patient has history of PAD, when pulse ox applied to forehead, patient's saturation actually much improved. Discussed with nursing staff in detail, that we will need to make sure to have correct readings. No fevers or chills, no chest pain no abdominal pain nausea or vomiting. Review of Systems Review of Systems: All systems reviewed & are unremarkable except as noted in HPI & below Constitutional: no fever and no chills Respiratory: + cough and + dyspnea Cardiovascular: no chest pain and no palpitations Gastrointestinal: no abdominal pain, no nausea and no vomiting Physical Exam Constitutional: WD/WN, vitals as above Eyes: PERRL, conjunctivae normal, anicteric sclerae ENMT: external ear and nose normal, oropharynx normal Neck: trachea midline, no thyromegaly normal visual inspection Respiratory: normal respiratory effort; no respiratory distress, no labored br eathing and does not use accessory muscles Auscultation: + rhonchi (mild bibasilar); no crackles and no wheezes Cardiovascular: RRR, no murmur, no edema Chest (Breasts): Chest: normal inspection of chest Gastrointestinal (Abdomen): Inspection/Auscultation: abdomen normal to inspection and normal bowel sounds; abdomen not distended Percussion/Palpation: abdomen soft; abdomen nontender, no guarding and abdomen not rigid Musculoskeletal: no cyanosis or clubbing, extremities motor strength 5/5 Head/Neck/Chest: normocephalic and head atraumatic Skin: no rashes, warm and dry Neurologic: PERRL, EOMI, accommodation nl, no face palsy, no dysarthria moves all extremities Psychiatric: A+Ox3, euthymic affect Genitourinary: no CVA tenderness Lymphatic: no lymphedema Results & Data Results & Data ([facility]) Vital Signs (Past 12 Hours) Vital Signs Temp Pulse Pulse Resp BP Pulse Ox Pulse Ox 07/29/20 07:29 36.5 C 63 23 137/62 96 96 07/29/20 03:39 36.4 C L 61 21 136/72 95 07/28/20 23:59 62 07/28/20 23:40 36.6 C 60 20 125/62 93 07/28/20 19:46 36.6 C 89 20 130/66 92 Laboratory Results Labs reviewed significant for improved creatinine at 1.37, and potassium low at 3.3 (1) Hyperlipidemia Hyperlipidemia type: other hyperlipidemia Qualified Code(s): E78.49 - Other hyperlipidemia; E78.4 - Other hyperlipidemia (2) Pneumonia Laterality: unspecified laterality Lung location: unspecified part of lung Pneumonia type: due to unspecified organism Qualified Code(s): J18.9 - Pneumonia, unspecified organism
[2020-07-29 08:25] LABS: Hematocrit (blood only) 38.9 % (42-52); Hemoglobin 14.1 g/dL (14.0-18.0); Mean Corpuscular Hemoglobin 30.8 pg (25-34); Mean Corpuscular Hgb Conc 36.2 g/dL (32-36); Mean Corpuscular Volume 84.9 fL (80-100); Mean Platelet Volume 12.8 fL (7.4-10.4); Platelet Count 103 K/uL (130-400); Platelet Estimate Decreased (Normal); RDW Coefficient of Variation 12.7 % (11.5-14.5); RDW Standard Deviation 39.2 fL (36.4-46.3); Red Blood Count 4.58 M/uL (4.7-6.1); White Blood Count 6.06 K/uL (4.8-10.8)
[2020-07-29 08:35] LABS: BUN Creatinine Ratio 31.4 (10-20); Calcium 8.9 mg/dl (8.5-10.1); Creatinine Clr Calc Pharmacy 33.6 ml/min; Est GFR (Non-African American) 45.7; Potassium 3.3 mmol/L (3.5-5.1)
[2020-07-29] MEDS ORDERED: LOPERAMIDE HCL 2 MG CAP PO PRN (09:53)
[2020-07-29] MEDS ORDERED: POTASSIUM CHLORIDE CRTAB 20 MEQ TABCR PO STA (09:55)
[2020-07-29] MEDS: SACCHAROMYCES BOULARDII 250 MG CAP PO SCH (12:53)
[2020-07-29] MEDS: cefTRIAXone SODIUM 1,000 MG in DEXTROSE 5% 50 ML IV SCH (12:53)
[2020-07-29] MEDS: THIAMINE HCL 100 MG TAB PO SCH (13:12)
[2020-07-29] MEDS: FOLIC ACID 1 MG TAB PO SCH (13:12)
--- NOTE | 2020-07-29 16:14 | XRay Report ---
XR chest 1V portable HISTORY: 89 years-old Male hypoxia, follow up acute shortness of breath with hypoxia. COVID Positive . COMPARISON: Chest radiographs 07/28/2020 TECHNIQUE: Portable AP view of the chest FINDINGS: Cardiomediastinal and hilar silhouettes are within normal limits. Calcified plaque of the thoracic ao rta. No pneumothorax. Mild left hemidiaphragmatic elevation. Hazy interstitial opacities are noted in addition to bibasilar opacities, mildly progressed on the right. Degenerative changes of the shoulde rs and spine. IMPRESSION: Hazy interstitial opacities with mildly progressed airspace densities of the right lung b ase suspicious for viral pneumonia. ACT 112: Negative or not required by law. The above report was generated using voice recognition software. It may contain grammatical, syntax o r spelling errors. Electronically signed by: Farhad Hernandez M.D. 07/29/2020 4:13 PM
[2020-07-29] MEDS: guaiFENesin 600 MG TABCR PO SCH (21:03)
[2020-07-30] MEDS: DOXYCYCLINE HYCLATE 100 MG in DEXTROSE 5% 100 ML IV SCH ×2 (00:47→13:27)
[2020-07-30] MEDS: HEPARIN SOD 5,000 UNIT/0.5 ML VIAL SQ SCH ×3 (05:15→21:46)
[2020-07-30 07:02] LABS: Hematocrit (blood only) 39.7 % (42-52); Hemoglobin 14.3 g/dL (14.0-18.0); Mean Corpuscular Hemoglobin 30.6 pg (25-34); Mean Platelet Volume 12.9 fL (7.4-10.4); Platelet Count 106 K/uL (130-400); RDW Coefficient of Variation 12.8 % (11.5-14.5); Red Blood Count 4.67 M/uL (4.7-6.1); White Blood Count 12.08 K/uL (4.8-10.8)
[2020-07-30 07:12] LABS: BUN Creatinine Ratio 37.7 (10-20); Calcium 8.5 mg/dl (8.5-10.1); Creatinine Clr Calc Pharmacy 36.3 ml/min; Est GFR (African American) 58.1; Est GFR (Non-African American) 50.1
[2020-07-30 07:14] LABS: C Reactive Protein 6.32 mg/dl (0-0.29)
--- NOTE | 2020-07-30 07:46 | Hospitalist Progress Note ---
Date of Service July 30, 2020 Assessment & Plan (1) Acute hypoxemic respiratory failure: (2) COVID-19: (3) Pneumonia: (4) Lactic acidosis: (5) Acute kidney injury superimposed on chronic kidney disease: (6) PAD (peripheral artery disease): (7) HTN (hypertension), benign: (8) BPH (benign prostatic hyperplasia): (9) Hyperlipidemia: This is an 89-year-old male with PMH of PAD, HTN, HLD, CKD III and other medical problems listed below who presents with worsening cough and shortness of breath over the past week was found to have acute hypoxic respiratory failure and Covid pneumonia. Acute hypoxic respiratory failure Covid pneumonia Initially hypoxic at 88% on RA. On admission Saturating 94% on 4 L nasal cannula Mild leukocytosis of 12.10. Lactic acid elevated at 3.8 - repeat wnl at 2. Procalcitonin within normal limits at 0.28 Positive covid-19 test in ED Chest x-ray with faint hazy densities right greater than left favoring viral pneumonia Started on IV dexamethasone 6 mg daily Endorsing symptoms for >1 week, also with SHARRI on CKD so not a good candidate for remdesivir Covid precautions Albuterol inhaler Proning as needed 07/29 Patient was sitting in the chair, today, although 80s% saturations when speaking. However when pulse ox changed to forehead, saturations improved into the 90s. Patient has history of PAD therefore readings may have been incorrect previously. Discussed in detail with nursing staff to make sure we have correct readings. 07/30 Pulse ox applied to forehead for more accurate readings. Now satting in 90s% on RA. Cont. to have cough, +weakness. Able to speak in full sentences. Order PT/OT Possible sepsis 2/2 pneumonia Mild leukocytosis and lactic acid elevation likely reactive in setting of viral Covid pneumonia - lactic acid normalized, procal wnl However, possible patient with superimposed bacterial pneumonia Started empiric Rocephin and doxycycline Follow blood cultures Acute kidney injury superimposed on chronic kidney disease Creatinine elevated at 1.98 (baseline cr~ 1.4) In setting of Covid pneumonia, poor p.o. intake Gentle IV fluids, avoid nephrotoxic agents when able Creatinine now improved to 1.3, back to baseline PAD History of vascular intervention of right lower extremity in the past Continue aspirin, Plavix, atorvastatin HTN Continue amlodipine, lisinopril BPH Continue finasteride HLD Continue statin DVT Ppx: Unfractionated heparin Q8H as recommended VTE ppx for covid + patients with Cr cl < 30 Code status: FULL per discussion with patient PCP: Dr. Purdy Dispo: Admitted to PCU Admission and Anticipated Discharge Date Admission Date: July 28, 2020 Subjective Patient seen in follow-up of respiratory failure with hypoxia, due to COVID-19 pneumonia Currently he is in a chair, in no acute distress, coughing frequently, speaking in full sentences Pulse ox applied to forehead for more accurate readings of O2 sats, pt now satting in 90s% on RA No fevers or chills, no chest pain no abdominal pain nausea or vomiting. Review of Systems Review of Systems: All systems reviewed & are unremarkable except as noted in HPI & below Constitutional: + fatigue; no fever and no chills Respiratory: + cough and + dyspnea (improved) Cardiovascular: no chest pain and no palpitations Gastrointestinal: no abdominal pain, no nausea and no vomiting Physical Exam Constitutional: WD/WN, vitals as above Eyes: PERRL, conjunctivae normal, anicteric sclerae ENMT: external ear and nose normal, oropharynx normal Neck: trachea midline, no thyromegaly normal visual inspection Respiratory: normal respiratory effort; no respiratory distress, no labored breathing and does not use accessory muscles Auscultation: + rhonchi (mild bibasilar); no crackles and no wheezes Cardiovascular: RRR, no murmur, no edema Chest (Breasts): Chest: normal inspection of chest Gastrointestinal (Abdomen): Inspection/Auscultation: abdomen normal to inspection and normal bowel sounds; abdomen not distended Percussion/Palpation: abdomen soft; abdomen nontender, no guarding and abdomen not rigid Musculoskeletal: no cyanosis or clubbing, extremities motor strength 5/5 Head/Neck/Chest: normocephalic and head atraumatic Skin: no rashes, warm and dry Neurologic: PERRL, EOMI, accommodation nl, no face palsy, no dysarthria moves all extremities Psychiatric: A+Ox3, euthymic affect Genitourinary: no CVA tenderness Lymphatic: no lymphedema Results & Data Results & Data ([facility]) Vital Signs (Past 12 Hours) Vital Signs Temp Pulse Pulse Resp BP Pulse Ox 07/30/20 03:39 36.6 C 69 18 148/91 H 96 07/29/20 23:43 36.5 C 62 18 121/66 92 07/29/20 22:20 64 Laboratory Results 07/30/20 07/30/20 07/30/20 Range/Units 06:26 06:26 06:26 WBC 12.08 H (4.8-10.8) K/uL RBC 4.67 L (4.7-6.1) M/uL Hgb 14.3 (14.0-18.0) g/dL Hct 39.7 L (42-52) % MCV 85.0 (80-100) fL MCH 30.6 (25-34) pg MCHC 36.0 (32-36) g/dL RDW Std Deviation 39.0 (36.4-46.3) fL RDW Coeff of Khang 12.8 (11.5-14.5) % Plt Count 106 L (130-400) K/uL MPV 12.9 H (7.4-10.4) fL Platelet Estimate (Normal) ESR (0-14) mm/hr Sodium 141 (136-145) mmol/L Potassium 4.0 D (3.5-5.1) mmol/L Chloride 112 H (98-107) mmol/L Carbon Dioxide 22 (21-32) mmol/L Anion Gap 7.0 (3-11) BUN 48 H (7-18) mg/dl Creatinine 1.27 (0.6-1.4) mg/dl Est Cr Clr Drug Dosing 36.3 ml/min Est GFR ( Amer) 58.1 Est GFR (Non-Af Amer) 50.1 BUN/Creatinine Ratio 37.7 H (10-20) Glucose 168 H (70-99) mg/dl Calcium 8.5 (8.5-10.1) mg/dl C-Reactive Protein 6.32 H (0-0.29) mg/dl Procalcitonin 0.08 (0-0.5) ng/ml 07/30/20 07/29/20 07/29/20 Range/Units 06:26 06:41 06:41 WBC (4.8-10.8) K/uL RBC (4.7-6.1) M/uL Hgb (14.0-18.0) g/dL Hct (42-52) % MCV (80-100) fL MCH (25-34) pg MCHC (32-36) g/dL RDW Std Deviation (36.4-46.3) fL RDW Coeff of Khang (11.5-14.5) % Plt Count (130-400) K/uL MPV (7.4-10.4) fL Platelet Estimate (Normal) ESR 62 H (0-14) mm/hr Sodium 138 (136-145) mmol/L Potassium 3.3 L (3.5-5.1) mmol/L Chloride 108 H (98-107) mmol/L Carbon Dioxide 21 (21-32) mmol/L Anion Gap 9.0 (3-11) BUN 43 H (7-18) mg/dl Creatinine 1.37 D (0.6-1.4) mg/dl Est Cr Clr Drug Dosing 33.6 ml/min Est GFR ( Amer) 53.0 Est GFR (Non-Af Amer) 45.7 BUN/Creatinine Ratio 31.4 H (10-20) Glucose 154 H (70-99) mg/dl Calcium 8.9 (8.5-10.1) mg/dl C-Reactive Protein (0-0.29) mg/dl Procalcitonin 0.19 (0-0.5) ng/ml 07/29/20 Range/Units 06:41 WBC 6.06 (4.8-10.8) K/uL RBC 4.58 L (4.7-6.1) M/uL Hgb 14.1 (14.0-18.0) g/dL Hct 38.9 L (42-52) % MCV 84.9 (80-100) fL MCH 30.8 (25-34) pg MCHC 36.2 H (32-36) g/dL RDW Std Deviation 39.2 (36.4-46.3) fL RDW Coeff of Khang 12.7 (11.5-14.5) % Plt Count 103 L (130-400) K/uL MPV 12.8 H (7.4-10.4) fL Platelet Estimate Decreased L (Normal) ESR (0-14) mm/hr Sodium (136-145) mmol/L Potassium (3.5-5.1) mmol/L Chloride (98-107) mmol/L Carbon Dioxide (21-32) mmol/L Anion Gap (3-11) BUN (7-18) mg/dl Creatinine (0.6-1.4) mg/dl Est Cr Clr Drug Dosing ml/min Est GFR ( Amer) Est GFR (Non-Af Amer) BUN/Creatinine Ratio (10-20) Glucose (70-99) mg/dl Calcium (8.5-10.1) mg/dl C-Reactive Protein (0-0.29) mg/dl Procalcitonin (0-0.5) ng/ml Medications Administered Current Inpatient Medications Acetaminophen (Acetaminophen 325 Mg Tab) 650 mg PO Q4H PRN PRN Reason: Pain or Fever Stop: 08/27/20 16:20 Last Admin: 07/29/20 13:11 Dose: 650 mg Documented by: Benzonatate (Benzonatate 100 Mg Capsule) 100 mg PO TID [facility] Stop: 08/27/20 13:59 Last Admin: 07/29/20 21:03 Dose: 100 mg Documented by: Calcium Carbonate (Calcium Carbonate 500 Mg Chewable Tab) 500 - 1,000 mg PO BID PRN PRN Reason: Indigestion Stop: 08/28/20 01:08 Last Admin: 07/29/20 01:26 Dose: 500 mg Documented by: Folic Acid (Folic Acid 1 Mg Tab) 1 mg PO QAM [facility] Stop: 08/28/20 12:59 Last Admin: 07/29/20 13:12 Dose: 1 mg Documented by: Guaifenesin (Guaifenesin 600 Mg Tabcr) 600 mg PO Q12 [facility] Stop: 08/28/20 20:59 Last Admin: 07/29/20 21:03 Dose: 600 mg Documented by: Heparin Sodium (Porcine) (Heparin Sod 5,000 Unit/0.5 Ml Vial) 7,500 units SQ Q8 [facility] Stop: 08/27/20 16:20 Last Admin: 07/30/20 05:15 Dose: 7,500 units Documented by: Ceftriaxone Sodium 1,000 mg/ (Dextrose) 50 mls @ 100 mls/hr IV Q24H [facility]; Protocol Stop: 08/04/20 12:29 Last Infusion: 07/29/20 13:37 Dose: Infused Documented by: Doxycycline Hyclate 100 mg/ (Dextrose) 110 mls @ 50 mls/hr IV Q12H [facility] Stop: 08/04/20 12:29 Last Infusion: 07/30/20 03:00 Dose: Infused Documented by: Dexamethasone 6 mg/ Syringe 1.5 mls @ 1 mls/min IV DAILY [facility] Stop: 08/08/20 08:59 Last Admin: 07/29/20 07:41 Dose: 1 mls/min Documented by: Loperamide HCl (Loperamide Hcl 2 Mg Cap) 2 mg PO Q6H PRN PRN Reason: Diarrhea Stop: 08/28/20 09:52 Last Admin: 07/29/20 13:12 Dose: 2 mg Documented by: Ondansetron HCl (Ondansetron Inj 2 Mg/Ml 2 Ml Vial) 4 mg IV Q6H PRN PRN Reason: Nausea Stop: 08/27/20 16:20 Polyethylene Glycol (Polyethylene (Miralax) 17 Gm Pack) 17 gm PO DAILY PRN PRN Reason: Constipation Stop: 08/27/20 16:20 Saccharomyces Boulardii (Saccharomyces Boulardii 250 Mg Cap) 250 mg PO DAILY [facility] Stop: 08/28/20 09:59 Last Admin: 07/29/20 12:53 Dose: 250 mg Documented by: Thiamine HCl (Thiamine Hcl 100 Mg Tab) 100 mg PO QAM [facility] Stop: 08/28/20 12:59 Last Admin: 07/29/20 13:12 Dose: 100 mg Documented by: (1) Hyperlipidemia Hyperlipidemia type: other hyperlipidemia Qualified Code(s): E78.49 - Other hyperlipidemia; E78.4 - Other hyperlipidemia (2) Pneumonia Laterality: unspecified laterality Lung location: unspecified part of lung Pneumonia type: due to unspecified organism Qualified Code(s): J18.9 - Pneumonia, unspecified organism
[2020-07-30] MEDS ORDERED: XOPENEX/ATROVENT 1.25mg/0.5MG NEB COMBO NEB PRN (09:17)
[2020-07-30] MEDS: THIAMINE HCL 100 MG TAB PO SCH (09:20)
[2020-07-30] MEDS: dexAMETHasone 6 MG in SYRINGE 0 ML IV SCH (09:20)
[2020-07-30] MEDS: BENZONATATE 100 MG CAPSULE PO SCH ×3 (09:21→21:45)
[2020-07-30] MEDS: FOLIC ACID 1 MG TAB PO SCH (09:21)
[2020-07-30] MEDS: SACCHAROMYCES BOULARDII 250 MG CAP PO SCH (09:21)
[2020-07-30] MEDS: guaiFENesin 600 MG TABCR PO SCH ×2 (09:21→21:45)
[2020-07-30] MEDS ORDERED: IPRATROPIUM BROMIDE NEB SOLN 0.02% 2.5 ML VIAL INH PRN (09:30)
[2020-07-30] MEDS ORDERED: LEVALBUTEROL 1.25MG/0.5ML NEB INH PRN (09:30)
[2020-07-30] MEDS: cefTRIAXone SODIUM 1,000 MG in DEXTROSE 5% 50 ML IV SCH (12:14)
--- NOTE | 2020-07-30 12:55 | Electrocardiogram Report ---
Test Reason : Blood Pressure : / mmHG Vent. Rate : 063 BPM Atrial Rate : 063 BPM P-R Int : 178 ms QRS Dur : 140 ms QT Int : 426 ms P-R-T Axes : 072 083 056 degrees QTc Int : 435 ms Normal sinus rhythm Right bundle branch block Abnormal ECG When compared with ECG of 28-JUL-2020 10:13, Premature ventricular complexes are no longer Present Premature atrial complexes are no longer Present Confirmed by Chay Clay ([id number]) on 07/30/2020 12:55:29 PM Referred By: REFERRED SELF Confirmed By:Donis Clay
[2020-07-30] MEDS ORDERED: XOPENEX/ATROVENT 1.25mg/0.5MG NEB COMBO NEB SCH (13:00)
[2020-07-30] MEDS: LEVALBUTEROL 1.25MG/0.5ML NEB INH SCH ×2 (13:47→20:01)
[2020-07-30] MEDS: IPRATROPIUM BROMIDE NEB SOLN 0.02% 2.5 ML VIAL INH SCH ×2 (13:47→20:01)
[2020-07-31] MEDS: IPRATROPIUM BROMIDE NEB SOLN 0.02% 2.5 ML VIAL INH SCH ×3 (00:09→13:27)
[2020-07-31] MEDS: LEVALBUTEROL 1.25MG/0.5ML NEB INH SCH ×3 (00:10→13:27)
[2020-07-31] MEDS: DOXYCYCLINE HYCLATE 100 MG in DEXTROSE 5% 100 ML IV SCH ×2 (00:45→12:24)
[2020-07-31] MEDS: HEPARIN SOD 5,000 UNIT/0.5 ML VIAL SQ SCH ×3 (05:54→21:54)
--- NOTE | 2020-07-31 07:02 | Hospitalist Progress Note ---
Date of Service July 31, 2020 Assessment & Plan (1) Acute hypoxemic respiratory failure: (2) COVID-19: (3) Pneumonia: (4) Lactic acidosis: (5) Acute kidney injury superimposed on chronic kidney disease: (6) PAD (peripheral artery disease): (7) HTN (hypertension), benign: (8) BPH (benign prostatic hyperplasia): (9) Hyperlipidemia: This is an 89-year-old male with PMH of PAD, HTN, HLD, CKD III and other medical problems listed below who presents with worsening cough and shortness of breath over the past week was found to have acute hypoxic respiratory failure and Covid pneumonia. Acute hypoxic respiratory failure Covid pneumonia Initially hypoxic at 88% on RA. On admission Saturating 94% on 4 L nasal cannula Mild leukocytosis of 12.10. Lactic acid elevated at 3.8 - repeat wnl at 2. Procalcitonin within normal limits at 0.28 Positive covid-19 test in ED Chest x-ray with faint hazy densities right greater than left favoring viral pneumonia Started on IV dexamethasone 6 mg daily Endorsing symptoms for >1 week, also with SHARRI on CKD so not a good candidate for remdesivir Covid precautions Albuterol inhaler Proning as needed 07/29 Patient was sitting in the chair, today, although 80s% saturations when speaking. However when pulse ox changed to forehead, saturations improved into the 90s. Patient has history of PAD therefore readings may have been incorrect previously. Discussed in detail with nursing staff to make sure we have correct readings. 07/30 Pulse ox applied to forehead for more accurate readings. Now satting in 90s% on RA. Cont. to have cough, +weakness. Able to speak in full sentences. Order PT/OT Possible sepsis 2/2 pneumonia Mild leukocytosis and lactic acid elevation likely reactive in setting of viral Covid pneumonia - lactic acid normalized, procal wnl However, possible patient with superimposed bacterial pneumonia Started empiric Rocephin and doxycycline blood cultures - NGTD Acute kidney injury superimposed on chronic kidney disease Creatinine elevated at 1.98 (baseline cr~ 1.4) In setting of Covid pneumonia, poor p.o. intake Gentle IV fluids, avoid nephrotoxic agents when able Creatinine now improved to 1.3, back to baseline PAD History of vascular intervention of right lower extremity in the past Continue aspirin, Plavix, atorvastatin HTN Continue amlodipine, lisinopril BPH Continue finasteride HLD Continue statin DVT Ppx: Unfractionated heparin Q8H as recommended VTE ppx for covid + patients with Cr cl < 30 Code status: FULL per discussion with patient PCP: Dr. Purdy Dispo: Admitted to PCU Admission and Anticipated Discharge Date Admission Date: July 28, 2020 Subjective Patient seen in follow-up of respiratory failure with hypoxia, due to COVID-19 pneumonia Currently he is in a chair, in no acute distress, coughing frequently, speaking in full sentences Pulse ox applied to forehead for more accurate readings of O2 sats, pt now satting in 90s% on RA No fevers or chills, no chest pain no abdominal pain nausea or vomiting. PT/OT ordered to eval for DC needs Review of Systems Review of Systems: All systems reviewed & are unremarkable except as noted in HPI & below At least ten systems reviewed and negative except as noted in the HPI. Constitutional: + fatigue; no fever and no chills Respiratory: + cough and + dyspnea (improved) Cardiovascular: no chest pain and no palpitations Gastrointestinal: no abdominal pain, no nausea and no vomiting Physical Exam Constitutional: WD/WN, vitals as above Eyes: PERRL, conjunctivae normal, anicteric sclerae ENMT: external ear and nose normal, oropharynx normal Neck: trachea midline, no thyromegaly normal visual inspection Respiratory: normal respiratory effort; no respiratory distress, no labored breathing and does not use accessory muscles Auscultation: + rhonchi (mild bibasilar); no crackles and no wheezes Cardiovascular: RRR, no murmur, no edema Chest (Breasts): Chest: normal inspection of chest Gastrointestinal (Abdomen): Inspection/Auscultation: abdomen normal to inspection and normal bowel sounds; abdomen not distended Percussion/Palpation: abdomen soft; abdomen nontender, no guarding and abdomen not rigid Musculoskeletal: no cyanosis or clubbing, extremities motor strength 5/5 Head/Neck/Chest: normocephalic and head atraumatic Skin: no rashes, warm and dry Neurologic: PERRL, EOMI, accommodation nl, no face palsy, no dysarthria moves all extremities Psychiatric: A+Ox3, euthymic affect Genitourinary: no CVA tenderness Lymphatic: no lymphedema Results & Data Results & Data ([facility]) Vital Signs (Past 12 Hours) Vital Signs Temp Pulse Resp BP Pulse Ox 07/31/20 03:43 36.2 C L 66 17 165/80 H 94 07/31/20 00:10 64 16 96 07/30/20 23:27 36.8 C 66 19 128/71 96 07/30/20 20:02 62 16 96 07/30/20 19:41 36.5 C 60 17 149/69 H 98 (1) Hyperlipidemia Hyperlipidemia type: other hyperlipidemia Qualified Code(s): E78.49 - Other hyperlipidemia; E78.4 - Other hyperlipidemia (2) Pneumonia Laterality: unspecified laterality Lung location: unspecified part of lung Pneumonia type: due to unspecified organism Qualified Code(s): J18.9 - Pneumonia, unspecified organism
[2020-07-31 08:00] LABS: Hematocrit (blood only) 38.2 % (42-52); Hemoglobin 13.8 g/dL (14.0-18.0); Mean Corpuscular Hemoglobin 30.7 pg (25-34); Mean Corpuscular Hgb Conc 36.1 g/dL (32-36); Mean Corpuscular Volume 84.9 fL (80-100); Mean Platelet Volume 12.4 fL (7.4-10.4); Platelet Count 114 K/uL (130-400); RDW Coefficient of Variation 12.7 % (11.5-14.5); RDW Standard Deviation 38.9 fL (36.4-46.3); White Blood Count 9.84 K/uL (4.8-10.8)
[2020-07-31 08:15] LABS: Albumin Level 2.8 gm/dl (3.4-5.0); BUN Creatinine Ratio 32.3 (10-20); Creatinine Clr Calc Pharmacy 33.6 ml/min; Est GFR (Non-African American) 45.7; Magnesium 2.3 mg/dl (1.8-2.4); Potassium 3.6 mmol/L (3.5-5.1)
[2020-07-31 08:18] LABS: Albumin Globulin Ratio 0.7 (0.9-2); Bilirubin,Total 0.5 mg/dl (0.2-1); Globulin 4.1 gm/dl (2.5-4.0); Total Protein 6.9 gm/dl (6.4-8.2)
[2020-07-31] MEDS: dexAMETHasone 6 MG in SYRINGE 0 ML IV SCH (09:13)
[2020-07-31] MEDS: FOLIC ACID 1 MG TAB PO SCH (09:14)
[2020-07-31] MEDS: BENZONATATE 100 MG CAPSULE PO SCH ×3 (09:14→21:54)
[2020-07-31] MEDS: SACCHAROMYCES BOULARDII 250 MG CAP PO SCH (09:14)
[2020-07-31] MEDS: guaiFENesin 600 MG TABCR PO SCH ×2 (09:14→21:54)
[2020-07-31] MEDS: THIAMINE HCL 100 MG TAB PO SCH (09:14)
[2020-07-31] MEDS: cefTRIAXone SODIUM 1,000 MG in DEXTROSE 5% 50 ML IV SCH (12:24)
[2020-08-01] MEDS: DOXYCYCLINE HYCLATE 100 MG in DEXTROSE 5% 100 ML IV SCH ×2 (01:12→12:59)
[2020-08-01] MEDS: HEPARIN SOD 5,000 UNIT/0.5 ML VIAL SQ SCH ×3 (06:10→22:19)
[2020-08-01 06:52] LABS: Hematocrit (blood only) 38.1 % (42-52); Hemoglobin 14.3 g/dL (14.0-18.0); Mean Corpuscular Hemoglobin 31.4 pg (25-34); Mean Corpuscular Hgb Conc 37.5 g/dL (32-36); Mean Corpuscular Volume 83.7 fL (80-100); Mean Platelet Volume 12.1 fL (7.4-10.4); Platelet Count 124 K/uL (130-400); RDW Coefficient of Variation 12.8 % (11.5-14.5); RDW Standard Deviation 38.8 fL (36.4-46.3); Red Blood Count 4.55 M/uL (4.7-6.1)
[2020-08-01 07:22] LABS: Calcium 8.6 mg/dl (8.5-10.1); Est GFR (African American) 49.9; Magnesium 2.2 mg/dl (1.8-2.4); Potassium 4.1 mmol/L (3.5-5.1)
[2020-08-01 07:26] LABS: Albumin Globulin Ratio 0.8 (0.9-2); Bilirubin,Total 0.5 mg/dl (0.2-1); Globulin 3.9 gm/dl (2.5-4.0); Total Protein 6.9 gm/dl (6.4-8.2)
[2020-08-01] MEDS: guaiFENesin 600 MG TABCR PO SCH ×2 (08:11→20:35)
[2020-08-01] MEDS: BENZONATATE 100 MG CAPSULE PO SCH ×3 (08:11→20:35)
[2020-08-01] MEDS: SACCHAROMYCES BOULARDII 250 MG CAP PO SCH (08:11)
--- NOTE | 2020-08-01 08:11 | Hospitalist Progress Note ---
Date of Service August 01, 2020 Assessment & Plan (1) Acute hypoxemic respiratory failure: (2) COVID-19: (3) Pneumonia: (4) Lactic acidosis: (5) Acute kidney injury superimposed on chronic kidney disease: (6) PAD (peripheral artery disease): (7) HTN (hypertension), benign: (8) BPH (benign prostatic hyperplasia): (9) Hyperlipidemia: This is an 89-year-old male with PMH of PAD, HTN, HLD, CKD III and other medical problems listed below who presents with worsening cough and shortness of breath over the past week was found to have acute hypoxic respiratory failure and Covid pneumonia. Acute hypoxic respiratory failure Covid pneumonia Initially hypoxic at 88% on RA. On admission Saturating 94% on 4 L nasal cannula Mild leukocytosis of 12.10. Lactic acid elevated at 3.8 - repeat wnl at 2. Procalcitonin within normal limits at 0.28 Positive covid-19 test in ED Chest x-ray with faint hazy densities right greater than left favoring viral pneumonia Started on IV dexamethasone 6 mg daily Endorsing symptoms for >1 week, also with SHARRI on CKD so not a good candidate for remdesivir Covid precautions Albuterol inhaler Proning as needed 07/29 Patient was sitting in the chair, today, although 80s% saturations when speaking. However when pulse ox changed to forehead, saturations improved into the 90s. Patient has history of PAD therefore readings may have been incorrect previously. Discussed in detail with nursing staff to make sure we have correct readings. 07/30 Pulse ox applied to forehead for more accurate readings. Now satting in 90s% on RA. Cont. to have cough, +weakness. Able to speak in full sentences. Order PT/OT Clinically pt improved, he is on RA but feels very fatigued. PT/OT ordered. Pt wishes to discuss DC w/ his sister. CM aware. Possible sepsis 2/2 pneumonia Mild leukocytosis and lactic acid elevation likely reactive in setting of viral Covid pneumonia - lactic acid normalized, procal wnl However, possible patient with superimposed bacterial pneumonia Started empiric Rocephin and doxycycline blood cultures - NGTD Acute kidney injury superimposed on chronic kidney disease Creatinine elevated at 1.98 (baseline cr~ 1.4) In setting of Covid pneumonia, poor p.o. intake Gentle IV fluids, avoid nephrotoxic agents when able Creatinine now improved to 1.3, back to baseline PAD History of vascular intervention of right lower extremity in the past Continue aspirin, Plavix, atorvastatin HTN Continue amlodipine, lisinopril BPH Continue finasteride HLD Continue statin DVT Ppx: Unfractionated heparin Q8H as recommended VTE ppx for covid + patients with Cr cl < 30 Code status: FULL per discussion with patient PCP: Dr. Purdy Dispo: Admitted to PCU Admission and Anticipated Discharge Date Admission Date: July 28, 2020 Subjective Patient seen in follow-up of respiratory failure with hypoxia, due to COVID-19 pneumonia Currently he is in a chair, in no acute distress, coughing frequently, speaking in full sentences Pulse ox applied to forehead for more accurate readings of O2 sats, pt now satting in 90s% on RA No fevers or chills, no chest pain no abdominal pain nausea or vomiting. PT/OT ordered to eval for DC needs Pt wants to discuss DC w/ sister, CM aware Review of Systems Review of Systems: All systems reviewed & are unremarkable except as noted in HPI & below Constitutional: + fatigue; no fever and no chills Respiratory: + cough and + dyspnea (improved) Cardiovascular: no chest pain and no palpitations Gastrointestinal: no abdominal pain, no nausea and no vomiting Physical Exam Constitutional: WD/WN, vitals as above Eyes: PERRL, conjunctivae normal, anicteric sclerae ENMT: external ear and nose normal, oropharynx normal Neck: trachea midline, no thyromegaly normal visual inspection Respiratory: normal respiratory effort; no respiratory distress, no labored breathing and does not use accessory muscles Auscultation: + rhonchi (mild bibasilar); no crackles and no wheezes Cardiovascular: RRR, no murmur, no edema Chest (Breasts): Chest: normal inspection of chest Gastrointestinal (Abdomen): Inspection/Auscultation: abdomen normal to inspection and normal bowel sounds; abdomen not distended Percussion/Palpation: abdomen soft; abdomen nontender, no guarding and abdomen not rigid Musculoskeletal: no cyanosis or clubbing, extremities motor strength 5/5 Head/Neck/Chest: normocephalic and head atraumatic Skin: no rashes, warm and dry Neurologic: PERRL, EOMI, accommodation nl, no face palsy, no dysarthria moves all extremities Psychiatric: A+Ox3, euthymic affect Genitourinary: no CVA tenderness Lymphatic: no lymphedema Results & Data Results & Data ([facility]) Vital Signs (Past 12 Hours) Vital Signs Temp Pulse Resp BP Pulse Ox 08/01/20 07:29 36.8 C 63 20 157/86 H 97 08/01/20 03:29 36.5 C 75 17 180/89 H 92 07/31/20 23:38 36.4 C L 68 20 172/82 H 95 Laboratory Results 08/01/20 08/01/20 07/31/20 Range/Units 06:24 06:24 07:29 WBC 10.10 (4.8-10.8) K/uL RBC 4.55 L (4.7-6.1) M/uL Hgb 14.3 (14.0-18.0) g/dL Hct 38.1 L (42-52) % MCV 83.7 (80-100) fL MCH 31.4 (25-34) pg MCHC 37.5 H (32-36) g/dL RDW Std Deviation 38.8 (36.4-46.3) fL RDW Coeff of Khang 12.8 (11.5-14.5) % Plt Count 124 L (130-400) K/uL MPV 12.1 H (7.4-10.4) fL Sodium 140 140 (136-145) mmol/L Potassium 4.1 3.6 (3.5-5.1) mmol/L Chloride 111 H 110 H (98-107) mmol/L Carbon Dioxide 23 22 (21-32) mmol/L Anion Gap 6.0 9.0 (3-11) BUN 45 H 44 H (7-18) mg/dl Creatinine 1.44 H 1.37 (0.6-1.4) mg/dl Est Cr Clr Drug Dosing 32.0 33.6 ml/min Est GFR ( Amer) 49.9 53.0 Est GFR (Non-Af Amer) 43.0 45.7 BUN/Creatinine Ratio 31.0 H 32.3 H (10-20) Glucose 151 H 157 H (70-99) mg/dl Calcium 8.6 9.0 (8.5-10.1) mg/dl Magnesium 2.2 2.3 (1.8-2.4) mg/dl Total Bilirubin 0.5 0.5 (0.2-1) mg/dl AST 37 25 (15-37) U/L ALT 47 29 (12-78) U/L Alkaline Phosphatase 58 59 (45-117) U/L Total Protein 6.9 6.9 (6.4-8.2) gm/dl Albumin 3.0 L 2.8 L (3.4-5.0) gm/dl Globulin 3.9 4.1 H (2.5-4.0) gm/dl Albumin/Globulin Ratio 0.8 L 0.7 L (0.9-2) Medications Administered Current Inpatient Medications Acetaminophen (Acetaminophen 325 Mg Tab) 650 mg PO Q4H PRN PRN Reason: Pain or Fever Stop: 08/27/20 16:20 Last Admin: 07/29/20 13:11 Dose: 650 mg Documented by: Benzonatate (Benzonatate 100 Mg Capsule) 100 mg PO TID [facility] Stop: 08/27/20 13:59 Last Admin: 07/31/20 21:54 Dose: 100 mg Documented by: Calcium Carbonate (Calcium Carbonate 500 Mg Chewable Tab) 500 - 1,000 mg PO BID PRN PRN Reason: Indigestion Stop: 08/28/20 01:08 Last Admin: 07/29/20 01:26 Dose: 500 mg Documented by: Folic Acid (Folic Acid 1 Mg Tab) 1 mg PO QAM [facility] Stop: 08/28/20 12:59 Last Admin: 07/31/20 09:14 Dose: 1 mg Documented by: Guaifenesin (Guaifenesin 600 Mg Tabcr) 600 mg PO Q12 [facility] Stop: 08/28/20 20:59 Last Admin: 07/31/20 21:54 Dose: 600 mg Documented by: Heparin Sodium (Porcine) (Heparin Sod 5,000 Unit/0.5 Ml Vial) 7,500 units SQ Q8 [facility] Stop: 08/27/20 16:20 Last Admin: 08/01/20 06:10 Dose: 7,500 units Documented by: Ceftriaxone Sodium 1,000 mg/ (Dextrose) 50 mls @ 100 mls/hr IV Q24H [facility]; Protocol Stop: 08/04/20 12:29 Last Infusion: 07/31/20 13:01 Dose: Infused Documented by: Doxycycline Hyclate 100 mg/ (Dextrose) 110 mls @ 50 mls/hr IV Q12H [facility] Stop: 08/04/20 12:29 Last Infusion: 08/01/20 07:13 Dose: Infused Documented by: Dexamethasone 6 mg/ Syringe 1.5 mls @ 1 mls/min IV DAILY [facility] Stop: 08/08/20 08:59 Last Admin: 07/31/20 09:13 Dose: 1 mls/min Documented by: Ipratropium [place] (Ipratropium [place] Neb Soln 0.02% 2.5 Ml Vial) 0.5 mg INH Q2H PRN PRN Reason: Shortness Of Breath Or Wheezing Stop: 08/29/20 09:29 Levalbuterol HCl (Levalbuterol 1.25mg/0.5ml Neb) 1.25 mg INH Q2H PRN PRN Reason: Shortness Of Breath Or Wheezing Stop: 08/29/20 09:29 Loperamide HCl (Loperamide Hcl 2 Mg Cap) 2 mg PO Q6H PRN PRN Reason: Diarrhea Stop: 08/28/20 09:52 Last Admin: 07/29/20 13:12 Dose: 2 mg Documented by: Ondansetron HCl (Ondansetron Inj 2 Mg/Ml 2 Ml Vial) 4 mg IV Q6H PRN PRN Reason: Nausea Stop: 08/27/20 16:20 Polyethylene Glycol (Polyethylene (Miralax) 17 Gm Pack) 17 gm PO DAILY PRN PRN Reason: Constipation Stop: 08/27/20 16:20 Saccharomyces Boulardii (Saccharomyces Boulardii 250 Mg Cap) 250 mg PO DAILY [facility] Stop: 08/28/20 09:59 Last Admin: 07/31/20 09:14 Dose: 250 mg Documented by: Thiamine HCl (Thiamine Hcl 100 Mg Tab) 100 mg PO QAM [facility] Stop: 08/28/20 12:59 Last Admin: 07/31/20 09:14 Dose: 100 mg Documented by: (1) Pneumonia Laterality: unspecified laterality Lung location: unspecified part of lung Pneumonia type: due to unspecified organism Qualified Code(s): J18.9 - Pneumonia, unspecified organism (2) Hyperlipidemia Hyperlipidemia type: other hyperlipidemia Qualified Code(s): E78.49 - Other hyperlipidemia; E78.4 - Other hyperlipidemia
[2020-08-01] MEDS: THIAMINE HCL 100 MG TAB PO SCH (08:12)
[2020-08-01] MEDS: FOLIC ACID 1 MG TAB PO SCH (08:12)
[2020-08-01] MEDS: dexAMETHasone 6 MG in SYRINGE 0 ML IV SCH (10:54)
[2020-08-01] MEDS: FINASTERIDE 5 MG TAB PO SCH ×2 (12:14→13:58)
[2020-08-01] MEDS: CLOPIDOGREL BISULFATE 75 MG TAB PO SCH ×2 (12:14→13:57)
[2020-08-01] MEDS: lisinopril 5 MG TAB PO SCH ×2 (12:14→13:56)
[2020-08-01] MEDS: CHOLECALCIFEROL 1,000 UNITS 25 MCG TAB PO SCH ×2 (12:14→13:57)
[2020-08-01] MEDS: amLODIPine BESYLATE 5 MG TAB PO SCH ×2 (12:14→13:57)
[2020-08-01] MEDS: cefTRIAXone SODIUM 1,000 MG in DEXTROSE 5% 50 ML IV SCH (12:58)
[2020-08-02] MEDS: DOXYCYCLINE HYCLATE 100 MG in DEXTROSE 5% 100 ML IV SCH (00:45)
[2020-08-02] MEDS: HEPARIN SOD 5,000 UNIT/0.5 ML VIAL SQ SCH (05:27)
[2020-08-02 06:21] LABS: Hematocrit (blood only) 42.9 % (42-52); Hemoglobin 15.4 g/dL (14.0-18.0); Mean Corpuscular Hemoglobin 30.6 pg (25-34); Mean Corpuscular Hgb Conc 35.9 g/dL (32-36); Mean Corpuscular Volume 85.1 fL (80-100); Mean Platelet Volume 11.7 fL (7.4-10.4); Platelet Count 134 K/uL (130-400); RDW Coefficient of Variation 12.9 % (11.5-14.5); RDW Standard Deviation 40.4 fL (36.4-46.3); Red Blood Count 5.04 M/uL (4.7-6.1); White Blood Count 8.57 K/uL (4.8-10.8)
[2020-08-02 06:46] LABS: Albumin Level 3.1 gm/dl (3.4-5.0); BUN Creatinine Ratio 31.1 (10-20); Calcium 9.4 mg/dl (8.5-10.1); Creatinine Clr Calc Pharmacy 32.9 ml/min; Est GFR (African American) 51.6; Est GFR (Non-African American) 44.5
[2020-08-02 06:47] LABS: Albumin Globulin Ratio 0.7 (0.9-2); Bilirubin,Total 0.6 mg/dl (0.2-1); Globulin 4.3 gm/dl (2.5-4.0); Total Protein 7.4 gm/dl (6.4-8.2)
[2020-08-02] MEDS: dexAMETHasone 6 MG in SYRINGE 0 ML IV SCH (08:35)
[2020-08-02] MEDS: guaiFENesin 600 MG TABCR PO SCH (08:35)
[2020-08-02] MEDS: BENZONATATE 100 MG CAPSULE PO SCH ×3 (08:35→19:58)
[2020-08-02] MEDS: THIAMINE HCL 100 MG TAB PO SCH (08:36)
[2020-08-02] MEDS: FOLIC ACID 1 MG TAB PO SCH (08:36)
[2020-08-02] MEDS: CLOPIDOGREL BISULFATE 75 MG TAB PO SCH (08:36)
[2020-08-02] MEDS: FINASTERIDE 5 MG TAB PO SCH (08:36)
[2020-08-02] MEDS: lisinopril 5 MG TAB PO SCH (08:36)
[2020-08-02] MEDS: amLODIPine BESYLATE 5 MG TAB PO SCH (08:36)
[2020-08-02] MEDS: CHOLECALCIFEROL 1,000 UNITS 25 MCG TAB PO SCH (08:36)
[2020-08-02] MEDS: SACCHAROMYCES BOULARDII 250 MG CAP PO SCH (08:37)
[2020-08-02] MEDS ORDERED: guaiFENesin 600 MG TABCR PO PRN (09:30)
--- NOTE | 2020-08-02 09:45 | Hospitalist Progress Note ---
Date of Service August 02, 2020 Assessment & Plan (1) Acute hypoxemic respiratory failure: 2/2 covid pneumonia. Resolved. See plan below. (2) Sepsis: 2/2 viral pneumonia, resolved. (3) Pneumonia due to COVID-19 virus: Continues on decadron (changed to PO). No remdesivir given the timing of symptoms and initial acute kidney injury. Still endorsing loose stools but this is improved (dairy free diet). Antibiotics are not needed and were stopped, procal zero and viral pneumonia. Off supplemental oxygen at rest but remains very weak. Considering SNF as a transition to home. Will discuss further with CM and sister. (4) Acute kidney injury superimposed on chronic kidney disease: resolved to baseline. Cont to avoid nephrotoxic substances and renally do se meds as appropriate. (5) PAD (peripheral artery disease): Continue medical therapy per home regimen with ASA, Plavix, Atorvastatin. (6) HTN (hypertension), benign: At goal, cont home lisinopril and amlodipine. (7) BPH (benign prostatic hyperplasia): cont home finasteride (8) DVT prophylaxis: UFH changed to Lovenox for DVT proph Full Code Dispo-likely to SNF, [place] for discharge once this is sorted out with case management, the patient and his sister with whom he lives. Neeta Martinez DO [facility] Hospitalist Admission and Anticipated Discharge Date Admission Date: July 28, 2020 Subjective 89 yo M reports h/o two shot vaccine regimen developed COVID infection shortly after second shot. Respiratory symptoms have resolved and he is oxygenating well on room air. No fevers or chills. Still reports loose stools, no abdominal discomfort and he is tolerating PO without issues. He denies any fevers or chills, reports significant fatigue. We discussed discharge plans and he is fine to consider SNF for additional rehab. He directed me to his sister, with whom he lives. Discussed case with primary nurse. Review of Systems Review of Systems: All systems reviewed & are unremarkable except as noted in Subjective Physical Exam Physical Exam: CONSTITUTIONAL: WNWD, vitals stable, generally well-appearing EYES: normal conjunctivae, no scleral icterus ENT: external ear and nose normal, MMM RESPIRATORY: clear to auscultation bilaterally, no crackles, rales or wheezes, normal respiratory effort CARDIOVASCULAR: regular rate and rhythm, S1 and 2 heard without murmurs, gallops or rubs, no JVD, no peripheral edema GASTROINTESTINAL: soft, nontender, nondistended, no guarding. MUSCULOSKELETAL: generalized weakness, head is normocephalic and atraumatic SKIN: warm and dry NEUROLOGIC: CN 2-12 grossly intact, no sensory deficit, normal cognition, normal speech PSYCHIATRIC: alert cooperative and answering questions appropriately. Results & Data Results & Data ([facility]) Vital Signs (Past 12 Hours) Vital Signs Temp Pulse Resp BP BP Pulse Ox 08/02/20 07:37 36.4 C L 76 18 121/66 94 08/02/20 03:23 36.4 C L 56 L 22 164/73 H 93 08/01/20 23:25 36.4 C L 68 19 180/84 H 98 Laboratory Results Short CBC 08/02/20 Range/Units 05:59 WBC 8.57 (4.8-10.8) K/uL Hgb 15.4 (14.0-18.0) g/dL Hct 42.9 (42-52) % Plt Count 134 (130-400) K/uL BMP 08/02/20 05:59 Sodium 140 Potassium 5.0 D Chloride 110 H Carbon Dioxide 26 BUN 44 H Creatinine 1.40 Glucose 175 H Calcium 9.4 Liver Function 08/02/20 Range/Units 05:59 Total Bilirubin 0.6 (0.2-1) mg/dl AST 34 (15-37) U/L ALT 63 (12-78) U/L Alkaline Phosphatase 68 (45-117) U/L Albumin 3.1 L (3.4-5.0) gm/dl Medications Administered Current Inpatient Medications Acetaminophen (Acetaminophen 325 Mg Tab) 650 mg PO Q4H PRN PRN Reason: Pain or Fever Stop: 08/27/20 16:20 Last Admin: 07/29/20 13:11 Dose: 650 mg Documented by: Amlodipine Besylate (Amlodipine Besylate 5 Mg Tab) 10 mg PO QAM [facility] Stop: 08/31/20 12:11 Last Admin: 08/02/20 08:36 Dose: 10 mg Documented by: Benzonatate (Benzonatate 100 Mg Capsule) 100 mg PO TID [facility] Stop: 08/27/20 13:59 Last Admin: 08/02/20 08:35 Dose: 100 mg Documented by: Calcium Carbonate (Calcium Carbonate 500 Mg Chewable Tab) 500 - 1,000 mg PO BID PRN PRN Reason: Indigestion Stop: 08/28/20 01:08 Last Admin: 07/29/20 01:26 Dose: 500 mg Documented by: Clopidogrel Bisulfate (Clopidogrel [facility] 75 Mg Tab) [facility] [place]: 08/31/20 12:11 Last Admin: 08/02/20 08:36 Dose: 75 mg Documented by: Dexamethasone (Dexamethasone 1 Mg Tab) 6 mg PO DAILY [facility] Stop: 09/02/20 08:59 Finasteride (Finasteride 5 Mg Tab) [address] [facility] Stop: 08/31/20 12:11 Last Admin: 08/02/20 08:36 Dose: 5 mg Documented by: Folic Acid (Folic Acid 1 Mg Tab) [facility] [place]: 08/28/20 12:59 Last Admin: 08/02/20 08:36 Dose: 1 mg Documented by: Guaifenesin (Guaifenesin 600 Mg Tabcr) 600 mg PO Q12 PRN PRN Reason: congestion Stop: 08/28/20 20:59 Ipratropium [place] (Ipratropium [place] Neb Soln 0.02% 2.5 Ml Vial) 0.5 mg INH Q2H PRN PRN Reason: Shortness Of Breath Or Wheezing Stop: 08/29/20 09:29 Levalbuterol HCl (Levalbuterol 1.25mg/0.5ml Neb) 1.25 mg INH Q2H PRN PRN Reason: Shortness Of Breath Or Wheezing Stop: 08/29/20 09:29 Lisinopril (Lisinopril 5 Mg Tab) [address] [facility] Stop: 08/31/20 12:11 Last Admin: 08/02/20 08:36 Dose: 15 mg Documented by: Loperamide HCl (Loperamide Hcl 2 Mg Cap) 2 mg PO Q6H PRN PRN Reason: Diarrhea Stop: 08/28/20 09:52 Last Admin: 07/29/20 13:12 Dose: 2 mg Documented by: Ondansetron HCl (Ondansetron Inj 2 Mg/Ml 2 Ml Vial) 4 mg IV Q6H PRN PRN Reason: Nausea Stop: 08/27/20 16:20 Polyethylene Glycol (Polyethylene (Miralax) 17 Gm Pack) 17 gm PO DAILY PRN PRN Reason: Constipation Stop: 08/27/20 16:20 Saccharomyces Boulardii (Saccharomyces Boulardii 250 Mg Cap) 250 mg PO DAILY [facility] Stop: 08/28/20 09:59 Last Admin: 08/02/20 08:37 Dose: 250 mg Documented by: Thiamine HCl (Thiamine Hcl 100 Mg Tab) [facility]: 08/28/20 12:59 Last Admin: 08/02/20 08:36 Dose: 100 mg Documented by: Vitamin D (Cholecalciferol 1,000 Units 25 Mcg Tab) 1,000 units PO QAM [facility] Stop: 08/31/20 12:11 Last Admin: 08/02/20 08:36 Dose: 1,000 units Documented by:
[2020-08-02] MEDS ORDERED: ENOXAPARIN INJ 40 MG/0.4 ML SYR SQ SCH (21:00)
[2020-08-03 01:19] LABS: BUN Creatinine Ratio 35.8 (10-20); Calcium 8.3 mg/dl (8.5-10.1); Creatinine Clr Calc Pharmacy 31.6 ml/min; Est GFR (African American) 49.1; Est GFR (Non-African American) 42.3; Potassium 4.4 mmol/L (3.5-5.1)
[2020-08-03] MEDS ORDERED: SODIUM CHLORIDE 0.9% 500 ML IV ONE (01:39)
--- NOTE | 2020-08-03 01:39 | Communication Note ---
Date of Service: August 03, 2020 Made aware by RN of uncontrolled blood pressure. SBP 170s. Patient sleeping as per RN. Serum creatinine 1.46 AP Hypertensive urgency ARF Continue home Amlodipine Monitor creatinine response to IVF, hold TRISH inhibitor until creatinine back to baseline. Will relay to AM provider.
[2020-08-03] MEDS ORDERED: amLODIPine BESYLATE 5 MG TAB PO SCH (01:40)
[2020-08-03] MEDS ORDERED: dexAMETHasone 1 MG TAB PO SCH (09:00)
[2020-08-03] MEDS: FINASTERIDE 5 MG TAB PO SCH (09:06)
[2020-08-03] MEDS: BENZONATATE 100 MG CAPSULE PO SCH ×2 (09:06→13:39)
[2020-08-03] MEDS: CLOPIDOGREL BISULFATE 75 MG TAB PO SCH (09:06)
[2020-08-03] MEDS: FOLIC ACID 1 MG TAB PO SCH (09:06)
[2020-08-03] MEDS: SACCHAROMYCES BOULARDII 250 MG CAP PO SCH (09:06)
[2020-08-03] MEDS: THIAMINE HCL 100 MG TAB PO SCH (09:06)
[2020-08-03] MEDS: CHOLECALCIFEROL 1,000 UNITS 25 MCG TAB PO SCH (09:06)
--- NOTE | 2020-08-03 10:53 | Communication Note ---
Date of Service: August 03, 2020 Notified by nursing regarding a fall in the room. Patient slid off the toilet and suffered a small abrasion. There is no residual injury and he is otherwise doing well. I contacted patient's sister, Madhavi Sandoval, by phone and disclosed the fall this morning. She reports that this type of thing happens frequently at home. We reviewed the care plan including diagnosis, treatment in the hospital and plans for transfer into SNF when insurance authorization is available. Deferred to manager of case management to work out logistics of transferring patient to facility once that facility is known. All questions were answered to her satisfaction. Juan, DO
--- NOTE | 2020-08-03 15:37 | Discharge Summary ---
Date of Service August 03, 2020 Admission HPI Per Admitting Provider This is an 89-year-old male with PMH of PAD, HTN, HLD, CKD III and other medical problems listed below who presents with worsening cough and shortness of breath over the past week. Patient endorses cough over the past month and a half that significantly worsened a week ago at time of receiving second mood and a Covid vaccine. Has felt more exhausted since then and also now dyspneic on exertion. States that this symptom was there prior to last week but is gotten significantly worse. Does not require oxygen at baseline but is found to be hypoxic at 88% on room air upon arrival. Now saturating 94% on 4 L. Denies any history of asthma or COPD. No fever or chills. Has had diarrhea for the past 2 months. Denies any headache, lightheadedness, chest pain, nausea, vomiting or dysuria. In ED, patient afebrile. Saturating 94% on 4 L nasal cannula. Mild leukocytosis of 12.10. Lactic acid elevated at 3.8. Procalcitonin within normal limits at 0.28. Found to be Covid positive. Chest x-ray with faint hazy densities right greater than left favoring viral pneumonia. Admission Exam Per Admitting Provider Patient is currently sitting up in bed, in no acute distress, however with frequent coughing, especially when talking. He is otherwise speaking in full sentences. He is alert and oriented answering questions appropriately. Nasal cannula applied. Heart sounds seem regular. No wheezing noted, mild diffuse rhonchi. Abdomen soft, nontender, nondistended. There is no lower extremity edema. Moves all extremities spontaneously and without difficulty. Skin is warm and dry. Principal Diagnosis Acute hypoxemic respiratory failure Sepsis Pneumonia due to COVID-19 virus Acute kidney injury superimposed on chronic kidney disease Discharge Exam CONSTITUTIONAL: WNWD, vitals stable, generally well-appearing EYES: normal conjunctivae, no scleral icterus ENT: external ear and nose normal, MMM RESPIRATORY: clear to auscultation bilaterally, no crackles, rales or wheezes, normal respiratory effort CARDIOVASCULAR: regular rate and rhythm, S1 and 2 heard without murmurs, gallops or rubs, no JVD, no peripheral edema GASTROINTESTINAL: soft, nontender, nondistended, no guarding. MUSCULOSKELETAL: generalized weakness, head is normocephalic and atraumatic SKIN: warm and dry NEUROLOGIC: CN 2-12 grossly intact, no sensory deficit, normal cognition, normal speech PSYCHIATRIC: alert cooperative and answering questions appropriately. Discharge Data Allergies Allergy/AdvReac Type Severity Reaction Status Date / Time pollen extracts Allergy Intermediate "HAYFEVER" Verified 07/28/20 10:53 No Known Drug Allergies Allergy Unknown NKDA Verified 07/28/20 10:53 Consultations 07/28/20 11:23 ED Decision to Admit Stat Ordered Studies Laboratory Results WBC 8.57 K/uL (4.8-10.8) 08/02/20 05:59 RBC 5.04 M/uL (4.7-6.1) 08/02/20 05:59 Hgb 15.4 g/dL (14.0-18.0) 08/02/20 05:59 Hct 42.9 % (42-52) 08/02/20 05:59 MCV 85.1 fL (80-100) 08/02/20 05:59 MCH 30.6 pg (25-34) 08/02/20 05:59 MCHC 35.9 g/dL (32-36) 08/02/20 05:59 RDW Std Deviation 40.4 fL (36.4-46.3) 08/02/20 05:59 RDW Coeff of Khang 12.9 % (11.5-14.5) 08/02/20 05:59 Plt Count 134 K/uL (130-400) 08/02/20 05:59 MPV 11.7 fL (7.4-10.4) H 08/02/20 05:59 Immature Gran % (Auto) 0.2 % 07/28/20 10:15 Neut % (Auto) 81.9 % 07/28/20 10:15 Lymph % (Auto) 10.7 % 07/28/20 10:15 [place] % (Auto) 6.4 % 07/28/20 10:15 Eos % (Auto) 0.7 % 07/28/20 10:15 Baso % (Auto) 0.1 % 07/28/20 10:15 Neut # (Auto) 9.92 K/uL (1.4-6.5) H 07/28/20 10:15 Lymph # (Auto) 1.29 K/uL (1.2-3.4) 07/28/20 10:15 [place] # (Auto) 0.78 K/uL (0.11-0.59) H 07/28/20 10:15 Eos # (Auto) 0.08 K/uL (0-0.5) 07/28/20 10:15 Baso # (Auto) 0.01 K/uL (0-0.2) 07/28/20 10:15 Immature Gran # (Auto) 0.02 K/uL (0.00-0.02) 07/28/20 10:15 Platelet Estimate Decreased (Normal) L 07/29/20 06:41 ESR 62 mm/hr (0-14) H 07/30/20 06:26 PT 10.1 Seconds (9.0-12.0) 07/28/20 10:15 INR 1.0 (0.9-1.1) 07/28/20 10:15 APTT 27.6 Seconds (21.0-31.0) 07/28/20 10:15 PTT Ratio 1.0 07/28/20 10:15 VBG pH 7.38 (7.36-7.41) 07/28/20 11:02 VBG pCO2 37 mmHg (38-50) L 07/28/20 11:02 VBG pO2 20 mmHg 07/28/20 11:02 VBG HCO3 21 mmol/L 07/28/20 11:02 VBG O2 Saturation < 60.0 % 07/28/20 11:02 VBG Base Excess -3.4 mEq/L 07/28/20 11:02 Barometric Pressure 725.7 mm/Hg 07/28/20 11:02 Sodium 140 mmol/L (136-145) 08/03/20 00:27 Potassium 4.4 mmol/L (3.5-5.1) 08/03/20 00:27 Chloride 111 mmol/L (98-107) H 08/03/20 00:27 Carbon Dioxide 25 mmol/L (21-32) 08/03/20 00:27 Anion Gap 4.0 (3-11) 08/03/20 00:27 BUN 52 mg/dl (7-18) H 08/03/20 00:27 Creatinine 1.46 mg/dl (0.6-1.4) H 08/03/20 00:27 Est Cr Clr Drug Dosing 31.6 ml/min 08/03/20 00:27 Est GFR ( Amer) 49.1 08/03/20 00:27 Est GFR (Non-Af Amer) 42.3 08/03/20 00:27 BUN/Creatinine Ratio 35.8 (10-20) H 08/03/20 00:27 Glucose 190 mg/dl (70-99) H 08/03/20 00:27 Lactate 2.0 mmol/L (0.4-2.0) 07/28/20 12:30 Calcium 8.3 mg/dl (8.5-10.1) L 08/03/20 00:27 Magnesium 2.2 mg/dl (1.8-2.4) 08/01/20 06:24 Total Bilirubin 0.6 mg/dl (0.2-1) 08/02/20 05:59 AST 34 U/L (15-37) 08/02/20 05:59 ALT 63 U/L (12-78) 08/02/20 05:59 Alkaline Phosphatase 68 U/L (45-117) 08/02/20 05:59 Troponin I 0.024 ng/ml (0-0.045) 07/28/20 10:15 C-Reactive Protein 6.32 mg/dl (0-0.29) H 07/30/20 06:26 NT-Pro-B Natriuret Pep 379 pg/ml (0-1800) 07/28/20 10:15 Total Protein 7.4 gm/dl (6.4-8.2) 08/02/20 05:59 Albumin 3.1 gm/dl (3.4-5.0) L 08/02/20 05:59 Globulin 4.3 gm/dl (2.5-4.0) H 08/02/20 05:59 Albumin/Globulin Ratio 0.7 (0.9-2) L 08/02/20 05:59 Procalcitonin 0.08 ng/ml (0-0.5) 07/30/20 06:26 COVID-19 Eval Order [facility]FluRsv at [facility] 07/28/20 10:24 SARS-CoV-2 (PCR) POSITIVE (Negative) A* 07/28/20 10:24 Influenza Type A (PCR) Negative (Neg) 07/28/20 10:24 Influenza Type B (PCR) Negative (Neg) 07/28/20 10:24 RSV (RT-PCR) Negative (Neg) 07/28/20 10:24 Impressions Chest X-Ray 07/29/20 15:43 XR chest 1V portable HISTORY: 89 years-old Male hypoxia, follow up acute shortness of breath with hypoxia. COVID Positive. COMPARISON: Chest radiographs 07/28/2020 TECHNIQUE: Portable AP view of the chest FINDINGS: Cardiomediastinal and hilar silhouettes are within normal limits. Calcified plaque of the thoracic aorta. No pneumothorax. Mild left hemidiaphragmatic elevation. Hazy interstitial opacities are noted in addition to bibasilar opacities, mildly progressed on the right. Degenerative changes of the shoulders and spine. IMPRESSION: Hazy interstitial opacities with mildly progressed airspace densities of the right lung base suspicious for viral pneumonia. ACT 112: Negative or not required by law. The above report was generated using voice recognition software. It may contain grammatical, syntax or spelling errors. Electronically signed by: Farhad Hernandez M.D. 07/29/2020 4:13 PM Hospital Course (1) Acute hypoxemic respiratory failure: (2) Sepsis: (3) Pneumonia due to COVID-19 virus: (4) Acute kidney injury superimposed on chronic kidney disease: (5) PAD (peripheral artery disease): (6) HTN (hypertension), benign: The patient is an 89-year-old man who received 2 doses of Covid vaccination who later presented with worsening cough and shortness of breath over 1 week time. He was admitted to the hospitalist service with acute respiratory failure and sepsis secondary to COVID-19 pneumonia. He was started on daily dexamethasone therapy. Acute renal insufficiency and ongoing symptoms beyond 1 week at presentation made him a poor candidate for remdesivir which was not offered. He was also started on empiric Rocephin and doxycycline which were later discontinued. He continued to clinically improve and kidney function returned to his baseline prior to discharge. At time of discharge he was mentating at baseline but when remained physically deconditioned and generally weak. He continued to endorse fatigue as part of the Covid viral syndrome. He was discharged in stable condition, oxygenating well on room air, hemodynamically stable with controlled blood pressure. Close followup with primary care was recommended. Total Time Total Time Spent Total Time Spent (In Minutes): 60 Total Time Includes: Examination of the Patient, Discharge Planning, Medication Reconciliation and Communication With Other Providers Discharge Plan Discharge Items Patient Disposition: Home - Self-Care Reason For Visit: ACUTE HYPOXIC RESP FAILURE POSSIBLE SEPSIS, COVID Discharge Diagnosis: Acute hypoxemic respiratory failure Sepsis Pneumonia due to COVID-19 virus Acute kidney injury superimposed on chronic kidney disease Condition on Discharge: Good Activity: Resume your previous activity Non-emergency contact: Primary Care Provider Call non-emergency contact if: you have any medication questions, your symptoms worsen, your pain is not controlled, your pain is worsening, your pain is unusual for you, your pain is concerning for you and you have a fever Follow-up/Referrals: Sam Purdy DO [Primary Care Provider] - Diet: Regular and Lactose Intolerant Addtl Attending Provider Instructions: Please take all medications as instructed on discharge list below. It is recommended that you follow-up with your primary care doctor within 1 week of discharge from the hospital to ensure you are still doing well after discharge. A repeat chest x-ray is recommended in 4 to 6 weeks to ensure complete resolution of pneumonia. This may be ordered by her primary care physician. It was a pleasure taking care of you! Please call if you have any questions or problems. You can reach a [facility] hospitalist on duty at [facility] 24 hours a day by calling [phone]. Take care of yourself. Neeta Martinez DO [facility] Hospitalist Pending Studies at Discharge: No Stand-Alone Forms: My [facility] Medications and DC Order Prescriptions: Continued atorvastatin 10 mg Tablet 10 mg PO QDL RF: 0 aspirin 325 mg Tablet 325 mg PO QAM RF: 0 amlodipine 10 mg tablet 10 mg PO QAM RF: 0 lisinopril 10 mg Tablet 15 mg PO QAM RF: 0 vitamin B complex Tablet 1 tab PO QDL RF: 0 cholecalciferol (vitamin D3) [Vitamin D3] 1,000 unit Tablet 1,000 unit PO QAM RF: 0 clopidogrel 75 mg Tablet 75 mg PO QAM Qty: 30 RF: 5 finasteride 5 mg tablet 5 mg PO QAM RF: 0 PreserVision AREDS-2 250-90-40-1 mg Capsule 1 tab PO BID RF: 0 Discharge Orders: Discharge Order (Routine); Ordered 08/03/20 Ordered By: Neeta Martinez Admission Data Admit Date/Time: 07/28/20 12:27 Attending Provider: Neeta Martinez Admit Provider: Rufus Church Primary Care Provider: Sam Purdy Other Providers: Rufus Church ; [facility],
== END 2020-08-03 14:35 | DRG 871 ==
LOC: ED 10:01 → 2E 12:27 → SUATTDRO 12:27 → 2E 15:29